=== PATIENT | female | born 1975 | race Caucasian/White ===

== ENCOUNTER 2018-08-05 11:45 | Emergency (ER) | payer OTHER, SELFPAY ==
[2018-08-05 11:52] VITALS: BP 133/82; PULSE 84; RESP 14; TEMP 36.6; O2SAT 97; BMI 36.2
--- NOTE | 2018-08-05 12:00 | DI.RAD.S_ITS ---
PROCEDURE: XR KNEE LT 3V INDICATIONS: Fall yesterday heard pop. TECHNIQUE: 3 views of the knee were acquired. COMPARISON: None. FINDINGS: Bones: No fractures or dislocations. No suspicious bony lesions. Soft tissues: No joint effusion. No suspicious soft tissue calcifications. IMPRESSION: No acute fracture or dislocation of the left knee. Consider followup radiographs in 7-10 days if there is continued clinical concern. Dictated by: Quinten Romeo M.D. on 08/05/2018 at 13:17 Approved by: Quinten Romeo M.D. on 08/05/2018 at 13:18
--- NOTE | 2018-08-05 12:14 | ED.LOWEXIN ---
HPI - Extremity Injury (Lower) <CATY Barbosa - Last Filed: 08/05/18 22:20> General Chief Complaint: Extremity Injury, Lower Stated Complaint: LT KNEE PAIN/ HEARD A POP IN MY KNEE Time Seen by Provider: 08/05/18 12:15 Source: patient Mode of arrival: wheelchair Limitations: no limitations History of Present Illness HPI Narrative: 43-year-old female with history of hypothyroidism and is a nonsmoker here for complaint of pain into her left knee. She states that yesterday she was walking on a rug that slipped on the floor underneath her causing her to twist her left knee. She reports pain and pop to the left knee when this happened. She denies any direct trauma to the knee. She reports increased pain with motion of the left knee. She also reports increased pain with weight-bearing. She is currently wearing a surgical boot to the left foot due to cuboid syndrome and is awaiting further care by Podiatry. She denies any other injuries or concerns at this timeframe. Related Data Home Medications Medication Instructions Recorded Confirmed hydrocodone-acetaminophen [[place]] 2 tab PO Q4-6H PRN 08/05/18 08/05/18 thyroid (pork) [[place] Thyroid] 15 mg PO DAILY 08/05/18 08/05/18 topiramate [Topamax] 100 mg PO DAILY 08/05/18 08/05/18 Previous Rx's Medication Instructions Recorded ondansetron [Zofran ODT] 4 mg PO Q8-12H PRN #10 tab 08/05/18 oxycodone-acetaminophen [Percocet] 1 tab PO Q4-6H PRN #10 tab 08/05/18 Allergies Allergy/AdvReac Type Severity Reaction Status Date / Time Sulfa (Sulfonamide Allergy Intermediate Vomiting Verified 08/05/18 11:56 Antibiotics) zolpidem [From Ambien] Allergy Intermediate Vomiting Verified 08/05/18 11:56 Penicillins Allergy Unknown Verified 08/05/18 11:56 acetaminophen [From Percocet] AdvReac Intermediate Nausea Verified 08/05/18 11:56 oxycodone [From Percocet] AdvReac Intermediate Nausea Verified 08/05/18 11:56 Review of Systems <CATY Barbosa - Last Filed: 08/05/18 22:20> Constitutional Denies chills, Denies fever(s), Denies lethargy and Denies weakness Eyes Denies change in vision, Denies eye discharge, Denies irritation and Denies loss of vision ENT Ears, Nose, Mouth, and Throat: Denies change in voice, Denies neck pain and Denies sore throat Cardiovascular Denies chest pain, Denies irregular heart rhythm, Denies lightheadedness, Denies palpitations, Denies dyspnea, Denies dyspnea on exertion and Denies orthopnea Respiratory Denies cough, Denies dyspnea, Denies dyspnea on exertion and Denies wheezing Gastrointestinal Gastrointestinal: Denies abdominal pain, Denies change in bowel habits, Denies diarrhea, Denies nausea and Denies vomiting Genitourinary Denies hematuria, Denies flank pain, Denies urinary incontinence and Denies urinary urgency Musculoskeletal Denies neck pain Comments: Left knee pain Integumentary/Breasts Denies pruritus, Denies erythema, Denies rash and Denies wounds Neurologic Denies confusion, Denies loss of vision and Denies weakness Psychiatric Denies anxiety, Denies confusion, Denies depression, Denies homicidal ideation and Denies suicidal ideation Endocrine Denies palpitations Hematologic/Lymphatic Denies easy bruising Allergic/Immunologic Denies wheezing Exam <Hernandez Islas GEOSCIENTIST - Last Filed: 08/05/18 22:20> Initial Vital Signs Initial Vital Signs: Vital Signs Temperature 97.8 F 08/05/18 11:52 Pulse Rate 84 08/05/18 11:52 Respiratory Rate 14 08/05/18 11:52 Blood Pressure 133/82 08/05/18 11:52 Pulse Oximetry 97 08/05/18 11:52 Const General: cooperative and well developed Nutritional Appearance: well nourished Orientation: alert, awake, oriented x3 and not confused [facility] Mouth: oral mucosae normal and moist mucous membranes Eyes Conjunctivae: conjunctivae normal Sclera: sclerae normal Pupils: PERRL EOM: EOM intact bilaterally Resp Effort & Inspection: normal respiratory effort, able to speak in complete sentences, no respiratory distress and no use of accessory muscles Auscultation: clear to auscultation bilaterally, no rales, no rhonchi and no wheezes Cardio Rate: regular rate Rhythm: regular rhythm Heart Sounds: no click, no gallops, no murmurs and no rubs Pulses: normal peripheral pulses Skin General: no rashes or lesions noted, No jaundice and No petechiae Neuro General: alert, oriented x3, gait normal and no focal motor deficits Speech: speech normal Extrem Other: Left knee with no swelling no ecchymosis no deformities. Negative anterior-posterior drawer sign. Negative varus and valgus stress test. Distal sensation is intact. Distal pulses are intact. Distal range of motion is intact. Decreased range of motion to the left knee due to pain. <Khadijah Griffin DO - Last Filed: 08/11/18 20:01> Initial Vital Signs Initial Vital Signs: Vital Signs Temperature 97.8 F 08/05/18 11:52 Pulse Rate 84 08/05/18 11:52 Respiratory Rate 14 08/05/18 11:52 Blood Pressure 133/82 08/05/18 11:52 Pulse Oximetry 97 08/05/18 11:52 Course <CATY Barbosa - Last Filed: 08/05/18 22:20> Orders Ordered: Discontinued Medications Ondansetron HCl (Zofran Odt) 4 mg PO NOW ONE Stop: 08/05/18 12:35 Last Admin: 08/05/18 12:44 Dose: 4 mg Oxycodone/Acetaminophen (Percocet 5/325) 2 tab PO NOW ONE Stop: 08/05/18 12:35 Last Admin: 08/05/18 12:44 Dose: 2 tab Vital Signs - 8 hr 08/05/18 11:52 Temperature 97.8 F Pulse Rate 84 Respiratory Rate 14 Blood Pressure 133/82 Pulse Oximetry 97 <Khadijah Griffin DO - Last Filed: 08/11/18 20:01> Orders Ordered: Discontinued Medications Ondansetron HCl (Zofran Odt) 4 mg PO NOW ONE Stop: 08/05/18 12:35 Last Admin: 08/05/18 12:44 Dose: 4 mg Oxycodone/Acetaminophen (Percocet 5/325) 2 tab PO NOW ONE Stop: 08/05/18 12:35 Last Admin: 08/05/18 12:44 Dose: 2 tab Vital Signs - 8 hr 08/05/18 11:52 Temperature 97.8 F Pulse Rate 84 Respiratory Rate 14 Blood Pressure 133/82 Pulse Oximetry 97 MDM - Extremity Injury (Lower) <CATY Barbosa - Last Filed: 08/05/18 22:20> Imaging Data left knee: Radiologist's impression: [address] [address] XRay Report Signed Patient: Kosta Gold MR#: [id number] : 1975 Acct:[id number] Age/Sex: 43 / F Date of Service: 08/05/18 Loc: ED Accession Number: [id number] Procedure: XR knee LT 3V Ordering Provider: Hernandez Islas PROCEDURE: XR KNEE LT 3V INDICATIONS: Fall yesterday heard pop. TECHNIQUE: 3 views of the knee were acquired. COMPARISON: None. FINDINGS: Bones: No fractures or dislocations. No suspicious bony lesions. Soft tissues: No joint effusion. No suspicious soft tissue calcifications. IMPRESSION: No acute fracture or dislocation of the left knee. Consider followup radiographs in 7-10 days if there is continued clinical concern. Dictated by: Quinten Romeo M.D. on 08/05/2018 at 13:17 Approved by: Quinten Romeo M.D. on 08/05/2018 at 13:18 [facility] Narrative Medical decision making narrative: X-ray the left knee was obtained was negative for any acute findings. Signs and symptoms presents as a sprain to the left knee. She is placed in a knee immobilizer. Postop boot was replaced for short postop boot to allow room for the knee immobilizer. She is also given crutches for nonweightbearing. She requested Percocet for pain as her prescribed [place] is not helping her pain at this timeframe. She is also prescribed Zofran to help with any nausea. [id number] ibuprofen to help with anti-inflammatory effects and discomfort. Follow up with primary care provider next week for re-evaluation. If symptoms do not resolve recommend MRI. Discharge Plan Departure Patient Disposition: Home Clinical Impression: Left knee sprain Discharge Date/Time: 08/05/18 13:59 Interventions: ED Discharge Assessment Last Done: 08/05/18 13:59 Instructions: DI for Knee Sprain Activity Restrictions/Additional Instructions: X-ray the left knee was negative for any acute findings. Signs and symptoms presents as knee sprain. You have been placed in knee immobilizer for comfort and support along with crutches for nonweightbearing use as directed. Use [id number] ibuprofen as needed for any discomfort. Ice and elevation help with any swelling. Small amount of Percocet as prescribed for breakthrough pain along with Zofran for nausea use as directed. No driving while on the Percocet. Follow up with her primary care provider next week for re-evaluation. If symptoms do not resolve recommend MRI. Prescriptions: New oxycodone-acetaminophen [Percocet] 5-325 mg tablet 1 tab PO Q4-6H PRN (Reason: pain) Qty: 10 RF: 0 ondansetron [Zofran ODT] 4 mg tablet,disintegrating 4 mg PO Q8-12H PRN (Reason: nausea and vomiting) Qty: 10 RF: 0 No Action hydrocodone-acetaminophen [[place]] 5-325 mg Tablet 2 tab PO Q4-6H PRN (Reason: Pain (Scale Score 7-10)) RF: 0 topiramate [Topamax] 100 mg Tablet 100 mg PO DAILY RF: 0 thyroid (pork) [[place] Thyroid] 15 mg Tablet 15 mg PO DAILY RF: 0 Referrals: Sulaiman Reina MD [Primary Care Provider] - <Khadijah Griffin DO - Last Filed: 08/11/18 20:01> Cosign ED Attending Ericature Attestation: I was immediately available in the department for consultation. Documentation has been reviewed. I agree with assessment and plan.
--- NOTE | 2018-08-05 12:38 | ED_ITS ---
HPI - Extremity Injury (Lower) <CATY Barbosa - Last Filed: 08/05/18 22:20> General Chief Complaint: Extremity Injury, Lower Stated Complaint: LT KNEE PAIN/ HEARD A POP IN MY KNEE Time Seen by Provider: 08/05/18 12:15 Source: patient Mode of arrival: wheelchair Limitations: no limitations History of Present Illness HPI Narrative: 43-year-old female with history of hypothyroidism and is a nonsmoker here for complaint of pain into her left knee. She states that yesterday she was walking on a rug that slipped on the floor underneath her causing her to twist her left knee. She reports pain and pop to the left knee when this happened. She denies any direct trauma to the knee. She reports increased pain with motion of the left knee. She also reports increased pain with weight-bearing. She is currently wearing a surgical boot to the left foot due to cuboid syndrome and is awaiting further care by Podiatry. She denies any other injuries or concerns at this timeframe. Related Data Home Medications Medication Instructions Recorded Confirmed hydrocodone-acetaminophen [[place]] 2 tab PO Q4-6H PRN 08/05/18 08/05/18 thyroid (pork) [[place] Thyroid] 15 mg PO DAILY 08/05/18 08/05/18 topiramate [Topamax] 100 mg PO DAILY 08/05/18 08/05/18 Previous Rx's Medication Instructions Recorded ondansetron [Zofran ODT] 4 mg PO Q8-12H PRN #10 tab 08/05/18 oxycodone-acetaminophen [Percocet] 1 tab PO Q4-6H PRN #10 tab 08/05/18 Allergies Allergy/AdvReac Type Severity Reaction Status Date / Time Sulfa (Sulfonamide Allergy Intermediate Vomiting Verified 08/05/18 11:56 Antibiotics) zolpidem [From Ambien] Allergy Intermediate Vomiting Verified 08/05/18 11:56 Penicillins Allergy Unknown Verified 08/05/18 11:56 acetaminophen [From Percocet] AdvReac Intermediate Nausea Verified 08/05/18 11: 56 oxycodone [From Percocet] AdvReac Intermediate Nausea Verified 08/05/18 11:56 Review of Systems <CATY Barbosa - Last Filed: 08/05/18 22:20> Constitutional Denies chills, Denies fever(s), Denies lethargy and Denies weakness Eyes Denies change in vision, Denies eye discharge, Denies irritation and Denies loss of vision ENT Ears, Nose, Mouth, and Throat: Denies change in voice, Denies neck pain and Denies sore throat Cardiovascular Denies chest pain, Denies irregular heart rhythm, Denies lightheadedness, Denies palpitations, Denies dyspnea, Denies dyspnea on exertion and Denies orthopnea Respiratory Denies cough, Denies dyspnea, Denies dyspnea on exertion and Denies wheezing Gastrointestinal Gastrointestinal: Denies abdominal pain, Denies change in bowel habits, Denies diarrhea, Denies nausea and Denies vomiting Genitourinary Denies hematuria, Denies flank pain, Denies urinary incontinence and Denies urinary urgency Musculoskeletal Denies neck pain Comments: Left knee pain Integumentary/Breasts Denies pruritus, Denies erythema, Denies rash and Denies wounds Neurologic Denies confusion, Denies loss of vision and Denies weakness Psychiatric Denies anxiety, Denies confusion, Denies depression, Denies homicidal ideation and Denies suicidal ideation Endocrine Denies palpitations Hematologic/Lymphatic Denies easy bruising Allergic/Immunologic Denies wheezing Exam <Hernandez Islas COIL CUTTER - Last Filed: 08/05/18 22:20> Initial Vital Signs Initial Vital Signs: Vital Signs Temperature 97.8 F 08/05/18 11:52 Pulse Rate 84 08/05/18 11:52 Respiratory Rate 14 08/05/18 11:52 Blood Pressure 133/82 08/05/18 11:52 Pulse Oximetry 97 08/05/18 11:52 Const General: cooperative and well developed Nutritional Appearance: well nourished Orientation: alert, awake, oriented x3 and not confused [facility] Mouth: oral mucosae normal and moist mucous membranes Eyes Conjunctivae: conjunctivae normal Sclera: sclerae normal Pupils: PERRL EOM: EOM intact bilaterally Resp Effort & Inspection: normal respiratory effort, able to speak in complete sentences, no respiratory distress and no use of accessory muscles Auscultation: clear to auscultation bilaterally, no rales, no rhonchi and no wheezes Cardio Rate: regular rate Rhythm: regular rhythm Heart Sounds: no click, no gallops, no murmurs and no rubs Pulses: normal peripheral pulses Skin General: no rashes or lesions noted, No jaundice and No petechiae Neuro General: alert, oriented x3, gait normal and no focal motor deficits Speech: speech normal Extrem Other: Left knee with no swelling no ecchymosis no deformities. Negative anterior-posterior drawer sign. Negative varus and valgus stress test. Distal sensation is intact. Distal pulses are intact. Distal range of motion is intact. Decreased range of motion to the left knee due to pain. <Khadijah Griffin DO - Last Filed: 08/11/18 20:01> Initial Vital Signs Initial Vital Signs: Vital Signs Temperature 97.8 F 08/05/18 11:52 Pulse Rate 84 08/05/18 11:52 Respiratory Rate 14 08/05/18 11:52 Blood Pressure 133/82 08/05/18 11:52 Pulse Oximetry 97 08/05/18 11:52 Course <CATY Barbosa - Last Filed: 08/05/18 22:20> Orders Ordered: Discontinued Medications Ondansetron HCl (Zofran Odt) 4 mg PO NOW ONE Stop: 08/05/18 12:35 Last Admin: 08/05/18 12:44 Dose: 4 mg Oxycodone/Acetaminophen (Percocet 5/325) 2 tab PO NOW ONE Stop: 08/05/18 12:35 Last Admin: 08/05/18 12:44 Dose: 2 tab Vital Signs - 8 hr 08/05/18 11:52 Temperature 97.8 F Pulse Rate 84 Respiratory Rate 14 Blood Pressure 133/82 Pulse Oximetry 97 <Khadijah Griffin DO - Last Filed: 08/11/18 20:01> Orders Ordered: Discontinued Medications Ondansetron HCl (Zofran Odt) 4 mg PO NOW ONE Stop: 08/05/18 12:35 Last Admin: 08/05/18 12:44 Dose: 4 mg Oxycodone/Acetaminophen (Percocet 5/325) 2 tab PO NOW ONE Stop: 08/05/18 12:35 Last Admin: 08/05/18 12:44 Dose: 2 tab Vital Signs - 8 hr 08/05/18 11:52 Temperature 97.8 F Pulse Rate 84 Respiratory Rate 14 Blood Pressure 133/82 Pulse Oximetry 97 MDM - Extremity Injury (Lower) <CATY Barbosa - Last Filed: 08/05/18 22:20> Imaging Data left knee: Radiologist's impression: [address] [address] XRay Report Signed Patient: Kosta Gold MR#: [id number] : 1975 Acct:[id number] Age/Sex: 43 / F Date of Service: 08/05/18 Loc: ED Accession Number: [id number] Procedure: XR knee LT 3V Ordering Provider: Hernandez Islas PROCEDURE: XR KNEE LT 3V INDICATIONS: Fall yesterday heard pop. TECHNIQUE: 3 views of the knee were acquired. COMPARISON: None. FINDINGS: Bones: No fractures or dislocations. No suspicious bony lesions. Soft tissues: No joint effusion. No suspicious soft tissue calcifications. IMPRESSION: No acute fracture or dislocation of the left knee. Consider followup radiographs in 7-10 days if there is continued clinical concern. Dictated by: Quinten Romeo M.D. on 08/05/2018 at 13:17 Approved by: Quinten Romeo M.D. on 08/05/2018 at 13:18 [facility] Narrative Medical decision making narrative: X-ray the left knee was obtained was negative for any acute findings. Signs and symptoms presents as a sprain to the left knee. She is placed in a knee immobilizer. Postop boot was replaced for short postop boot to allow room for the knee immobilizer. She is also given crutches for nonweightbearing. She requested Percocet for pain as her prescribed [place] is not helping her pain at this timeframe. She is also prescribed Zofran to help with any nausea. [id number]-[id number]-[id number] ibuprofen to help with anti-inflammatory effects and discomfort. Follow up with primary care provider next week for re-evaluation. If symptoms do not resolve recommend MRI. Discharge Plan Departure Patient Disposition: Home Clinical Impression: Left knee sprain Discharge Date/Time: 08/05/18 13:59 Interventions: ED Discharge Assessment Last Done: 08/05/18 13:59 Instructions: DI for Knee Sprain Activity Restrictions/Additional Instructions: X-ray the left knee was negative for any acute findings. Signs and symptoms presents as knee sprain. You have been placed in knee immobilizer for comfort and support along with crutches for nonweightbearing use as directed. Use over- the-counter ibuprofen as needed for any discomfort. Ice and elevation help with any swelling. Small amount of Percocet as prescribed for breakthrough pain along with Zofran for nausea use as directed. No driving while on the Percocet. Follow up with her primary care provider next week for re- evaluation. If symptoms do not resolve recommend MRI. Prescriptions: New oxycodone-acetaminophen [Percocet] 5-325 mg tablet 1 tab PO Q4-6H PRN (Reason: pain) Qty: 10 RF: 0 ondansetron [Zofran ODT] 4 mg tablet,disintegrating 4 mg PO Q8-12H PRN (Reason: nausea and vomiting) Qty: 10 RF: 0 No Action hydrocodone-acetaminophen [[place]] 5-325 mg Tablet 2 tab PO Q4-6H PRN (Reason: Pain (Scale Score 7-10)) RF: 0 topiramate [Topamax] 100 mg Tablet 100 mg PO DAILY RF: 0 thyroid (pork) [[place] Thyroid] 15 mg Tablet 15 mg PO DAILY RF: 0 Referrals: Sulaiman Reina MD [Primary Care Provider] - <Khadijah Griffin DO - Last Filed: 08/11/18 20:01> Cosign ED Attending Ericature Attestation: I was immediately available in the department for consultation. Documentation has been reviewed. I agree with assessment and plan.
[2018-08-05] MEDS: OXYCODONE/ACETAMINOPHEN 5/325 TABLET 2 TAB PO (12:44)
[2018-08-05] MEDS: ONDANSETRON 4 MG ODT PO (12:44)
[2018-08-05 13:49] VITALS: BP 128/70; PULSE 77; RESP 18; O2SAT 100
== END 2018-08-05 13:59 | disposition home or self-care (01) ==
PROVIDERS: Emergency Provider Nurse Practitioner Family; PCP Family Medicine
DX: S83.92XA Sprain of unspecified site of left knee, initial encounter (principal); W18.41XA Slipping, tripping and stumbling without falling due to stepping on object, initial encounter
CPT/HCPCS: 73562; 99283

== ENCOUNTER 2019-10-31 11:48 | Emergency (ER) | payer OTHER, SELFPAY ==
[2019-10-31 11:48] VITALS: BP 131/87; PULSE 84; RESP 14; TEMP 36.7; O2SAT 100
[2019-10-31 12:00] VITALS: PULSE 88
--- NOTE | 2019-10-31 12:16 | DI.RAD.S_ITS ---
PROCEDURE: XR THORACIC SPINE 3V INDICATIONS: back pain sp chiro TECHNIQUE: 3 views of the thoracic spine were acquired. COMPARISON: None. FINDINGS: Bones: No fractures or dislocations. No suspicious bony lesions. 12 pairs of ribs are noted, and appear intact where visualized. Soft tissues: No paravertebral stripe thickening. IMPRESSION: No fracture or dislocation is seen in thoracic spine. Dictated by: Delonte King M.D. on 10/31/2019 at 13:37 Approved by: Delonte King M.D. on 10/31/2019 at 13:40
--- NOTE | 2019-10-31 12:16 | DI.RAD.S_ITS ---
PROCEDURE: XR LUMBAR SPINE 2-3V INDICATIONS: pain sp chiro TECHNIQUE: 3 views of the lumbar spine were acquired. COMPARISON: None. FINDINGS: Bones: 5 [id number] vertebrae are present. There is normal bony alignment. No vertebral body compression fractures. Mild degenerative endplate changes at L3-4 through L5-S1 levels are seen. No suspicious bony lesions. Soft tissues: Overlying bowel gas pattern is normal. No suspicious soft tissue calcifications. IMPRESSION: Mild degenerative disc disease in lower lumbar spine. No acute compression fracture or spondylolisthesis. Dictated by: Delonte King M.D. on 10/31/2019 at 13:40 Approved by: Delonte King M.D. on 10/31/2019 at 13:42
--- NOTE | 2019-10-31 12:25 | ED_ITS ---
HPI - Extremity Problem <RAHEEM Jackson - Last Filed: 10/31/19 21:06> General Chief complaint: Extremity Problem,Nontraumatic Stated complaint: shoulders,hips,lower back pain Time Seen by Provider: 10/31/19 12:03 Source: patient Mode of arrival: Wheelchair Limitations: no limitations History of Present Illness HPI Narrative: The patient is a 44-year-old female nonsmoker with history of chronic back pain who presents with a chief complaint of worsening back pain. She states that her chronic back pain is much worse after a chiropractor visit on Wednesday. She denies any incontinence of bowel, incontinence of bladder saddle anesthesia. She states that she severe low back pain radiating to her right thigh, but not last all she states that she has pain around her left shoulder. She denies any numbness or tingling. She took [place] at home for chronic pain, but states that it makes her nauseous. She has not taken any Tylenol or Motrin. She has not taken anything today for pain. She is able to ambulate around the emergency department during her stay with no difficulty. Related Data Home Medications Medication Instructions Recorded Confirmed desvenlafaxine succinate 50 mg PO QPM 10/31/19 10/31/19 topiramate [Topamax] 50 mg PO BID 10/31/19 10/31/19 Previous Rx's Medication Instructions Recorded cyclobenzaprine 10 mg PO TID PRN #14 tab 10/31/19 ketorolac 10 mg PO TID PRN #14 tab 10/31/19 ondansetron 4 mg PO Q6H PRN #20 tab 10/31/19 Allergies Allergy/AdvReac Type Severity Reaction Status Date / Time Sulfa (Sulfonamide Allergy Intermediate Vomiting Verified 10/31/19 12:09 Antibiotics) zolpidem [From Ambien] Allergy Intermediate Vomiting Verified 10/31/19 12:09 Penicillins Allergy Unknown Verified 10/31/19 12:09 oxycodone [From Percocet] AdvReac Intermediate Nausea Verified 10/31/19 12:09 Review of Systems <RAHEEM Jackson - Last Filed: 10/31/19 21:06> Review of Systems Narrative: GENERAL: Denies chills, fatigue, malaise, fever, sweats. HEENT: Denies sinus pain, ear pain, sore throat, difficulty swallowing, dizziness. RESPIRATORY: Denies dyspnea, cough, wheezing, hemoptysis, sputum. CARDIOVASCULAR: Denies chest pain, palpitations, orthopnea, edema, GASTROINTESTINAL: Denies nausea, vomiting, abdominal pain, diarrhea, constipation, melena. : Denies dysuria, frequency, incontinence, hematuria, urinary retention. MUSCULOSKELETAL: See HPI SKIN: Denies rash, skin lesions, or other NEUROLOGIC: Denies weakness, headache, numbness, change in speech, confusion, seizures, incoordination. PSYCHIATRIC: No concerning psychosocial issues. 12 point review of systems is negative except for those stated above Patient History <RAHEEM Jackson - Last Filed: 10/31/19 21:06> Social History Smoking Status: Never smoker Smoking Status: Never smoker alcohol intake frequency: 0-2 drinks per day Substance Use Type: does not use Exam <RAHEEM Jackson - Last Filed: 10/31/19 21:06> Narrative Exam Narrative: GENERAL: This is a well-nourished, well-developed patient, in no acute distress HEAD: Atraumatic. Normocephalic. No temporal or scalp tenderness. EYES: Pupils equal round and reactive. Extraocular motions intact. No scleral icterus. No injection or drainage. ENT: Nose without bleeding, purulent drainage or septal hematoma. Throat without erythema, tonsillar hypertrophy or exudate. Uvula midline. Airway patent. NECK: Trachea midline. No JVD or lymphadenopathy. Supple, nontender, no meningeal signs. CARDIOVASCULAR: Regular rate and rhythm without murmurs, gallops, or rubs. RESPIRATORY: Clear to auscultation. Breath sounds equal bilaterally. No wheezes, rales, or rhonchi. GASTROINTESTINAL: Abdomen soft, non-tender, nondistended. No hepato- splenomegaly, or palpable masses. No guarding. EXTREMITIES: No clubbing, cyanosis, or edema. No joint tenderness, effusion, or edema noted. BACK: No pain to C-spine palpation. Pain to palpation of T and L-spine as well as paraspinal muscles bilaterally. Stable gait. Strength is equal upper and lower extremities bilaterally. NEURO: AOx3. SKIN: No rash or erythema. Initial Vital Signs Initial Vital Signs: Vital Signs Temperature 98.1 F 10/31/19 11:48 Pulse Rate 84 10/31/19 11:48 Respiratory Rate 14 10/31/19 11:48 Blood Pressure 131/87 10/31/19 11:48 Pulse Oximetry 100 10/31/19 11:48 <Segun Mancilla DO - Last Filed: 10/31/19 21:14> Initial Vital Signs Initial Vital Signs: Vital Signs Temperature 98.1 F 10/31/19 11:48 Pulse Rate 84 10/31/19 11:48 Respiratory Rate 14 10/31/19 11:48 Blood Pressure 131/87 10/31/19 11:48 Pulse Oximetry 100 10/31/19 11:48 Course <RAHEEM Jackson - Last Filed: 10/31/19 21:06> Orders Ordered: ED Orders 10/31/19 12:16 XR lumbar spine 2-3V Stat XR thoracic spine 3V Stat Discontinued Medications Cyclobenzaprine HCl (Flexeril) 10 mg PO NOW ONE Stop: 10/31/19 12:17 Last Admin: 10/31/19 13:07 Dose: 10 mg Documented by: RADHA Ketorolac Tromethamine (Toradol) 60 mg IM NOW ONE Stop: 10/31/19 12:17 Last Admin: 10/31/19 13:06 Dose: 60 mg Documented by: RADHA Lidocaine (Lidoderm) 1 each TOP NOW ONE Stop: 10/31/19 13:52 Last Admin: 10/31/19 14:19 Dose: 1 each Documented by: MATTHEW Ondansetron HCl (Zofran Odt) 4 mg SL NOW ONE Stop: 10/31/19 12:17 Last Admin: 10/31/19 13:07 Dose: 4 mg Documented by: RADHA Tramadol HCl (Ultram) 50 mg PO NOW ONE Stop: 10/31/19 13:52 Last Admin: 10/31/19 14:18 Dose: 50 mg Documented by: MATTHEW Vital Signs Vital signs: Vital Signs - 8 hr 10/31/19 11:48 Temperature 98.1 F Pulse Rate 84 Respiratory Rate 14 Blood Pressure 131/87 Pulse Oximetry 100 <DO Delicia Bonilla Last Filed: 10/31/19 21:14> Orders Ordered: ED Orders 10/31/19 12:16 XR lumbar spine 2-3V Stat XR thoracic spine 3V Stat Discontinued Medications Cyclobenzaprine HCl (Flexeril) 10 mg PO NOW ONE Stop: 10/31/19 12:17 Last Admin: 10/31/19 13:07 Dose: 10 mg Documented by: RADHA Ketorolac Tromethamine (Toradol) 60 mg IM NOW ONE Stop: 10/31/19 12:17 Last Admin: 10/31/19 13:06 Dose: 60 mg Documented by: RADHA Lidocaine (Lidoderm) 1 each TOP NOW ONE Stop: 10/31/19 13:52 Last Admin: 10/31/19 14:19 Dose: 1 each Documented by: MATTHEW Ondansetron HCl (Zofran Odt) 4 mg SL NOW ONE Stop: 10/31/19 12:17 Last Admin: 10/31/19 13:07 Dose: 4 mg Documented by: RADHA Tramadol HCl (Ultram) 50 mg PO NOW ONE Stop: 10/31/19 13:52 Last Admin: 10/31/19 14:18 Dose: 50 mg Documented by: MATTHEW Vital Signs Vital signs: Vital Signs - 8 hr 10/31/19 11:48 Temperature 98.1 F Pulse Rate 84 Respiratory Rate 14 Blood Pressure 131/87 Pulse Oximetry 100 MDM - Extremity (Nontraumatic) <RAHEEM Jackson - Last Filed: 10/31/19 21:06> Imaging Data T-spine x-ray: Radiologist's impression: Kosta Gold 44 F 1975 [place] [address] XRay Report Signed Patient: AsifMeganami Quintana KMR#: [id number] : 1975Acct:[id number] Age/Sex: 44 / FDate of Service: 10/31/19 Loc: ED Accession Number: [id number] Procedure: XR thoracic spine 3V Ordering Provider: Conchis Lamar PROCEDURE: XR THORACIC SPINE 3V INDICATIONS: back pain sp chiro TECHNIQUE: 3 views of the thoracic spine were acquired. COMPARISON: None. FINDINGS: Bones: No fractures or dislocations. No suspicious bony lesions. 12 pairs of ribs are noted, and appear intact where visualized. Soft tissues: No paravertebral stripe thickening. IMPRESSION: No fracture or dislocation is seen in thoracic spine. Dictated by: Delonte King M.D. on 10/31/2019 at 13:37 Approved by: Delonte King M.D. on 10/31/2019 at 13:40 Lumbar spine x-ray: Radiologist's impression: [address] [address] XRay Report Signed Patient: Kosta Gold KMR#: [id number] : 1975Acct:[id number] Age/Sex: 44 / FDate of Service: 10/31/19 Loc: ED Accession Number: [id number] Procedure: XR lumbar spine 2-3V Ordering Provider: Conchis Lamar ALCOHOL AND DRUG COUNSELOR- PROCEDURE: XR LUMBAR SPINE 2-3V INDICATIONS: pain sp chiro TECHNIQUE: 3 views of the lumbar spine were acquired. COMPARISON: None. FINDINGS: Bones: 5 [id number] vertebrae are present. There is normal bony alignment. No vertebral body compression fractures. Mild degenerative endplate changes at L3- 4 through L5-S1 levels are seen. No suspicious bony lesions. Soft tissues: Overlying bowel gas pattern is normal. No suspicious soft tissue calcifications. IMPRESSION: Mild degenerative disc disease in lower lumbar spine. No acute compression fracture or spondylolisthesis. Dictated by: Delonte King M.D. on 10/31/2019 at 13:40 Approved by: Delonte King M.D. on 10/31/2019 at 13:42 [facility] Narrative Medical decision making narrative: The patient is a 44-year-old female who presents with a chief complaint of chronic pain exacerbation after seeing a chiropractor last week. She feels improved, looser after the above-stated therapies but states that her pain is not much improved. However she states that she feels looser and can move better. She ambulates throughout her stay without difficulties. She has no red flag symptoms of incontinence of bowel, incontinence bladder or saddle anesthesia helping rule out cauda, but she states understanding of these return precautions. I did give her prescriptions of Toradol with strict instructions to not combine it with any other NSAIDs. I did give her prescription of Flexeril with instructions that I can be sedating. Encourage PCP follow-up in the next few days. Patient has no questions or concerns upon discharge and states understanding of return precautions as well as follow-up care. Discharge Plan Departure Patient Disposition: Home Clinical Impression: Back muscle spasm Back pain Qualifiers: Back pain location: back pain in unspecified location Chronicity: chronic Back pain laterality: unspecified Qualified Code(s): M54.9 - Dorsalgia, unspecified Discharge Date/Time: 10/31/19 15:23 Instructions: DI for Low Back Pain, DI for Back Spasm, DI for Thoracic Back Pain, DI for Muscle Spasm Activity Restrictions/Additional Instructions: I sent prescriptions of Flexeril and Toradol to [facility] in [place] Your x-ray show no acute fractures or findings today. As I discussed, your x-ray shows no acute fracture. This does not rule out a soft tissue injury. It is important that you follow up with primary care provider, especially if worsening or no improvement. I have given you a prescription of Toradol. This is an NSAID. Do not combine it with other NSAIDs such as Aleve or ibuprofen. I suggest taking it with some food, as it can irritate your stomach. Please follow-up with primary care provider in the next few days Please come back to the emergency department for any acute concerns such as incontinence of bowel, incontinence of bladder or numbness in her groin Prescriptions: New ketorolac 10 mg tablet 10 mg PO TID PRN (Reason: pain) Qty: 14 RF: 0 cyclobenzaprine 10 mg tablet 10 mg PO TID PRN (Reason: muscle spasm) Qty: 14 RF: 0 ondansetron 4 mg tablet,disintegrating 4 mg PO Q6H PRN (Reason: nausea and vomiting) Qty: 20 RF: 0 No Action desvenlafaxine succinate 25 mg tablet extended release 24 hr 50 mg PO QPM RF: 0 topiramate [Topamax] 50 mg Tablet 50 mg PO BID RF: 0 Referrals: Melanie Snider MD [Primary Care Provider] - <Segun Mancilla, DO - Last Filed: 10/31/19 21:14> Sign Out Provider Sign Out Attestation: Dr Mancilla Co-Sign Statement: I was available for consultation during this patient's emergency department visit. This chart is signed by myself for administrative purposes only. I did not have direct contact with this patient during this visit. They were seen independently by the APC.
[2019-10-31] MEDS: KETOROLAC 60 MG/2 ML VIAL IM (13:06)
[2019-10-31] MEDS: ONDANSETRON 4 MG ODT SL (13:07)
[2019-10-31] MEDS: CYCLOBENZAPRINE 10 MG TABLET PO (13:07)
--- NOTE | 2019-10-31 13:25 | PC.NURSE ---
Late entry: initial assessment: Pt w/ chronic low back pain w/ radiation to anterior thigh. Left shoulder pain from known cervical injury. Both are worse. No new injury. Denies bowel and bladder concerns except it hurts to sit and void. Moving all extremities equally well. CSM fully intact. Pt states she normally takes norco and ibuprofen but is having difficulty taking r/t nausea.
[2019-10-31] MEDS: TRAMADOL 50 MG TABLET PO (14:18)
[2019-10-31] MEDS: LIDOCAINE PATCH 1 EACH ADH..PATCH TOP (14:19)
--- NOTE | 2019-10-31 14:22 | PC.NURSE ---
patient able to sit upright without assistance and take po medication. She maintained her upright sitting position for minutes while taking medication and having lidocane patch placed. Denies further needs at this time. Sig other at bedside.
--- NOTE | 2019-10-31 15:08 | PC.NURSE ---
patient asked to provide a urine sample. Patient refused. provider notified, no orders received.
== END 2019-10-31 15:23 | disposition home or self-care (01) ==
PROVIDERS: Emergency Provider Nurse Practitioner Family; PCP Family Medicine
DX: M62.830 Muscle spasm of back (principal); M54.9 Dorsalgia, unspecified
CPT/HCPCS: 72072; 72100; 96372; 99283; J1885

== ENCOUNTER 2020-09-03 08:48 | Emergency (ER) | payer OTHER, SELFPAY ==
[2020-09-03] VITALS (10 sets, daily range): BP systolic 123–160; BP diastolic 64–80; PULSE 69–96; RESP 16; TEMP 36.8; O2SAT 94–99
--- NOTE | 2020-09-03 10:03 | ED.GENADULT ---
HPI - General Adult General Chief complaint: Weakness Stated complaint: lupus flare up Time Seen by Provider: 09/03/20 09:39 Source: patient Mode of arrival: Ambulatory History of Present Illness HPI narrative: drove patient here. Patient complains of lupus joint pain flare-up. Ongoing the past few days worsened yesterday. Patient diagnosed with lupus in 2014. She recently moved back from [place]. She was seeing a thrill performer and atmara Castro. Currently is not on any maintenance medication. Patient states pain feels exactly same as past flare-ups. Has had Toradol in the past. Has had steroids in the past as well. LMP now. No known triggers. She states hot heat would usually trigger it. No recent illness cough cold congestion fever chills. Related Data Home Medications Medication Instructions Recorded Confirmed desvenlafaxine succinate 50 mg PO QPM 10/31/19 10/31/19 topiramate [Topamax] 50 mg PO BID 10/31/19 10/31/19 Previous Rx's Medication Instructions Recorded cyclobenzaprine 10 mg PO TID PRN #14 tab 10/31/19 ketorolac 10 mg PO TID PRN #14 tab 10/31/19 ondansetron 4 mg PO Q6H PRN #20 tab 10/31/19 hydrocodone-acetaminophen 1 tab PO Q6H PRN #7 tab 09/03/20 methylprednisolone [Medrol ([place]arter)] See Rx Instructions .ROUTE 09/03/20 .COMPLEX #21 each ondansetron 4 mg PO Q8H PRN #10 tab 09/03/20 Allergies Allergy/AdvReac Type Severity Reaction Status Date / Time Sulfa (Sulfonamide Allergy Intermediate Vomiting Verified 10/31/19 12:09 Antibiotics) zolpidem [From Ambien] Allergy Intermediate Vomiting Verified 10/31/19 12:09 Penicillins Allergy Unknown Verified 10/31/19 12:09 oxycodone [From Percocet] AdvReac Intermediate Nausea Verified 10/31/19 12:09 Review of Systems Review of Systems Narrative: GENERAL: Denies chills, fatigue, malaise, fever, sweats. HEENT: Denies sinus pain, ear pain, sore throat, difficulty swallowing RESPIRATORY: Denies dyspnea, cough CARDIOVASCULAR: Denies chest pain, palpitations, edema, GASTROINTESTINAL: Denies nausea, vomiting, abdominal pain, diarrhea, constipation, melena. : Denies dysuria, frequency, hematuria MUSCULOSKELETAL: Complains bony pain SKIN: Denies rash, skin lesions NEUROLOGIC: Denies weakness, headache, numbness, change in speech, confusion PSYCHIATRIC: No SI or HI or hallucinations ROS Unobtainable: All systems reviewed & are unremarkable except as noted in HPI and below Patient History Social History Smoking Status: Never smoker Smoking Status: Never smoker alcohol intake frequency: 0-2 drinks per day Substance Use Type: does not use Exam Narrative Exam Narrative: GENERAL: patient appears stated age. Well-nourished, well-developed patient, in no distress, not toxic not dyspneic HEAD: Normocephalic. EYES: Pupils equal round and reactive. No scleral icterus. No injection no discharge ENT: Mucous membranes moist. No drooling no tongue elevation no trismus no malocclusion NECK: Trachea midline. Non tender CARDIOVASCULAR: Regular rate and rhythm without murmurs, gallops, or rubs. RESPIRATORY: Clear to auscultation. Breath sounds equal bilaterally. No wheezes, rales, or rhonchi. GASTROINTESTINAL: Abdomen soft, non-tender, nondistended. EXTREMITIES: No gross deformities. No erythema or swelling of the wrist hands fingers ankles. No rash. Non tender bilateral shoulders elbows wrists knees ankles. Nontender hips. BACK: Nontender without deformity or crepitance. No flank tenderness. NEURO: AOx4. SKIN: Warm and dry PSYCH: Not anxious, is cooperative Initial Vital Signs Initial Vital Signs: Vital Signs Temperature 98.3 F 09/03/20 09:05 Pulse Rate 96 H 09/03/20 09:05 Respiratory Rate 16 09/03/20 09:05 Blood Pressure 157/69 H 09/03/20 09:05 Pulse Oximetry 99 09/03/20 09:05 Course Course Course Narrative: Pain control achieved while here. Patient not toxic. She desires discharge home. Orders Ordered: Discontinued Medications Hydrocodone Bitart/Acetaminophen ([place] 5/325) 2 tab PO NOW ONE Stop: 09/03/20 10:03 Last Admin: 09/03/20 10:49 Dose: 2 tab Documented by: MMINOR Sodium Chloride (Normal Saline 0.9%) 1,000 mls @ 1,000 mls/hr IV BOLUS ONE Stop: 09/03/20 11:55 Last Admin: 09/03/20 11:07 Dose: 1,000 mls/hr Documented by: MAC Ketorolac Tromethamine (Toradol) 15 mg IV NOW ONE Stop: 09/03/20 10:02 Last Admin: 09/03/20 10:16 Dose: 15 mg Documented by: MAC Methylprednisolone (Solu-Medrol 125 Mg Vial) 125 mg IV NOW ONE Stop: 09/03/20 10:55 Last Admin: 09/03/20 11:07 Dose: 125 mg Documented by: MAC Morphine Sulfate (Morphine) 4 mg IV NOW ONE Stop: 09/03/20 12:01 Last Admin: 09/03/20 12:13 Dose: 4 mg Documented by: MAC Ondansetron HCl (Zofran) 4 mg IV NOW ONE Stop: 09/03/20 10:02 Last Admin: 09/03/20 10:16 Dose: 4 mg Documented by: MAC Reevaluation(s) Reevaluation #1: Feels much better. Pain free. She desires discharge home. Has a residential recycle driver. Time: 13:14 Vital Signs Vital signs: Vital Signs - 8 hr 09/03/20 10:30 09/03/20 11:00 09/03/20 11:30 Pulse Rate 75 71 69 Blood Pressure 123/64 138/70 140/72 Pulse Oximetry 96 96 96 09/03/20 12:00 09/03/20 12:30 09/03/20 13:00 Pulse Rate 82 69 72 Blood Pressure 157/80 H 149/77 H Pulse Oximetry 97 94 94 09/03/20 13:01 Pulse Rate 73 Blood Pressure 160/70 H Pulse Oximetry 96 Medical Decision Making Differential Diagnosis Differential Diagnosis: Lupus flare Lab Data Lab results reviewed: Yes I reviewed the patient's lab results. Result diagrams: 09/03/20 09:07 09/03/20 09:07 Labs: Lab Results 09/03/20 09/03/20 09/03/20 Range/Units 09:07 09:07 09:07 WBC 9.9 (4.5-11.0) X10^3/uL RBC 4.77 (4.0-5.2) X10^6/uL Hgb 12.6 (12.0-16.0) g/dL Hct 38.2 (36-46) % MCV 80.2 (80-100) fL MCH 26.3 (26-34) PG MCHC 32.8 (30-36) % RDW 16.8 H (11.6-14.8) % Plt Count 357 (150-400) X10^3/uL Neut % (Auto) 64.9 (50-75) % Lymph % (Auto) 24.5 L (25-40) % [place] % (Auto) 6.9 (3-14) % Eos % (Auto) 2.8 (2-4) % Baso % (Auto) 0.9 (0-2) % Neut # (Auto) 6400 (9042-6503) /uL Lymph # (Auto) 2400 (5850-2734) /uL [place] # (Auto) 700 (0-900) /uL Eos # (Auto) 300 (0-450) /uL Baso # (Auto) 100 (0-100) /uL ESR 48 H (0-20) MM/HR Sodium 138 (137-145) mmol/L Potassium 3.8 (3.4-5.1) mmol/L Chloride 104 (98-107) mmol/L Carbon Dioxide 25 (22-32) mmol/L BUN 18 H (7-17) mg/dL Creatinine 0.75 (0.52-1.04) mg/dL Estimated GFR > 60.0 (>60) mL/min BUN/Creatinine Ratio 24.0 H (6-22) Glucose 118 H (70-100) mg/dL Calcium 9.4 (8.4-10.2) mg/dL Total Bilirubin 0.4 (0.2-1.3) mg/dL AST 27 (14-36) IU/L ALT 18 (<35) IU/L Alkaline Phosphatase 98 (38-126) U/L C-Reactive Protein 1.4 H (<1.0) mg/dL Total Protein 8.4 H (6.3-8.2) g/dL Albumin 4.5 (3.5-5.0) g/dL Globulin 3.9 (1.7-4.1) g/dL Albumin/Globulin Ratio 1.2 (1.0-2.8) Serum , Qual Negative (Negative) MDM Narrative Medical decision making narrative: No imaging indicated. Patient states feels exactly like past flare-ups. Not toxic at discharge. Appropriate for discharge home Discharge Plan Departure Patient Disposition: Home Clinical Impression: Lupus arthritis Discharge Date/Time: 09/03/20 13:30 Instructions: DI for Systemic Lupus Erythematosus Activity Restrictions/Additional Instructions: No driving today. Call your your rheumatology services office today for appointment. Return if worse or if any questions concerns. Continue started pack tomorrow. Prescriptions: New hydrocodone-acetaminophen 5-325 mg tablet 1 tab PO Q6H PRN (Reason: pain) Qty: 7 RF: 0 methylprednisolone [Medrol ([place])] 4 mg tablets,dose pack See Rx Instructions .ROUTE .COMPLEX Qty: 21 RF: 0 ondansetron 4 mg tablet,disintegrating 4 mg PO Q8H PRN (Reason: nausea and vomiting) Qty: 10 RF: 0 No Action desvenlafaxine succinate 25 mg tablet extended release 24 hr 50 mg PO QPM RF: 0 topiramate [Topamax] 50 mg Tablet 50 mg PO BID RF: 0 ketorolac 10 mg tablet 10 mg PO TID PRN (Reason: pain) Qty: 14 RF: 0 cyclobenzaprine 10 mg tablet 10 mg PO TID PRN (Reason: muscle spasm) Qty: 14 RF: 0 ondansetron 4 mg tablet,disintegrating 4 mg PO Q6H PRN (Reason: nausea and vomiting) Qty: 20 RF: 0 Referrals: Melanie Snider MD [Primary Care Provider] -
[2020-09-03 10:09] LABS: Add Manual Diff / Slide Review NO; Basophils Absolute Auto 100 /uL (0-100); Basophils Percent Auto 0.9 % (0-2); Eosinophils Absolute Auto 300 /uL (0-450); Eosinophils Percent Auto 2.8 % (2-4); Hematocrit 38.2 % (36-46); Hemoglobin 12.6 g/dL (12.0-16.0); Lymphocytes Absolute Auto 2400 /uL (1100-4500); Lymphocytes Percent Auto 24.5 % (25-40); Mean Corpuscular HGB Conc 32.8 % (30-36); Mean Corpuscular Hemoglobin 26.3 PG (26-34); Mean Corpuscular Volume 80.2 fL (80-100); Monocytes Absolute Auto 700 /uL (0-900); Monocytes Percent Auto 6.9 % (3-14); Neutrophils Absolute Auto 6400 /uL (1500-7000); Neutrophils Percent Auto 64.9 % (50-75); Platelet Count 357 X10^3/uL (150-400); Red Blood Cell Count 4.77 X10^6/uL (4.0-5.2); Red Cell Distribution Width 16.8 % (11.6-14.8); White Blood Cell Count 9.9 X10^3/uL (4.5-11.0)
[2020-09-03 10:12] LABS: Pregnancy Test Serum,Qual Negative (Negative)
[2020-09-03 10:16] LABS: Alanine Aminotransferase 18 IU/L (<35); Albumin 4.5 g/dL (3.5-5.0); Albumin Globulin Ratio 1.2 (1.0-2.8); Alkaline Phosphatase 98 U/L (38-126); Aspartate Aminotransferase 27 IU/L (14-36); Bilirubin Total 0.4 mg/dL (0.2-1.3); Blood Urea Nitrogen 18 mg/dL (7-17); C-Reactive Protein Quant 1.4 mg/dL (<1.0); Calcium 9.4 mg/dL (8.4-10.2); Carbon Dioxide 25 mmol/L (22-32); Chloride 104 mmol/L (98-107); Estimated Glomerular Filt Rate > 60.0 mL/min (>60); Globulin 3.9 g/dL (1.7-4.1); Glucose 118 mg/dL (70-100); HEMOLYSIS < 15 (0-50); Potassium 3.8 mmol/L (3.4-5.1); Sodium 138 mmol/L (137-145); Total Protein 8.4 g/dL (6.3-8.2)
[2020-09-03] MEDS: KETOROLAC 60 MG/2 ML VIAL 15 MG IV (10:16)
[2020-09-03] MEDS: ONDANSETRON 4 MG/2 ML INJ IV (10:16)
[2020-09-03 10:43] LABS: Erythrocyte Sedimentation Rate 48 MM/HR (0-20)
[2020-09-03] MEDS: HYDROCODONE/ACET 5/325 TABLET 2 TAB PO (10:49)
--- NOTE | 2020-09-03 10:57 | PC.NURSE ---
pt has hx of lupus with chronic joint pain of 6/10, here today with pain 9/10 which is not normal for her
[2020-09-03] MEDS: methylPREDNISolone 125 MG/2 ML VIAL IV (11:07)
[2020-09-03] MEDS: SODIUM CHLORIDE 0.9% 1,000 ML 1000 ML IV (11:07)
[2020-09-03] MEDS: MORPHINE 4 MG/ML INJ IV (12:13)
== END 2020-09-03 13:30 | disposition home or self-care (01) ==
PROVIDERS: Emergency Provider Emergency Medicine; PCP Family Medicine
DX: M32.9 Systemic lupus erythematosus, unspecified (principal)
CPT/HCPCS: 36415; 80053; 84703; 85025; 85651; 86140; 96361; 96374; 96375; 99284; J1885; J2270; J2405; J2930

== ENCOUNTER 2020-11-04 10:31 | Emergency (ER) | payer OTHER, SELFPAY ==
--- NOTE | 2020-11-04 10:56 | DI.RAD.S_ITS ---
PROCEDURE: XR HIP W PEL IF DONE LT 2V INDICATIONS: pain from fall TECHNIQUE: AP pelvis with lateral view(s) of the left hip(s). COMPARISON: None. FINDINGS: Bones: No fractures or dislocations. Pelvic ring appears intact. No suspicious bony lesions. Soft tissues: The visualized bowel gas pattern is normal. No suspicious soft tissue calcifications. IMPRESSION: No gross acute left hip fracture or dislocation. Dictated by: Delonte King M.D. on 11/04/2020 at 11:21 Approved by: Delonte King M.D. on 11/04/2020 at 11:22
[2020-11-04 13:15] VITALS: BP 141/89; PULSE 82; RESP 16; O2SAT 98
[2020-11-04 13:34] VITALS: TEMP 36.8
--- NOTE | 2020-11-04 14:13 | ED.LOWEXIN ---
HPI - Extremity Injury (Lower) <Conchis Lamar, [employer] - Last Filed: 11/04/20 16:49> General Chief Complaint: Extremity Injury, Lower Stated Complaint: si joint disfuntion/left hip severe pain Time Seen by Provider: 11/04/20 13:34 Source: patient Mode of arrival: Ambulatory Limitations: no limitations History of Present Illness HPI Narrative: The patient is a 45-year-old female nonsmoker with history of remote back injury who presents with a chief complaint of left hip pain after ground level fall earlier this month. She states that she went to an outside facility emergency department twice for pain. Initially she was started on baclofen, went back was given [place] after an x-ray. Her initial visit was on 10/25, and she stated she fell on 10/23. She states she had a she mechanical fall, and slipped landing on the tile floor. She denies any new incontinence of bladder, denies any incontinence of bowel, denies any numbness of her groin. She has not taken anything for pain for the past few days. She states that she was given a Toradol injection an outside facility that helped, was not given a prescription. She states she has been prescribed baclofen and [place] for this fall previously. Related Data Home Medications Medication Instructions Recorded Confirmed desvenlafaxine succinate 50 mg PO QPM 10/31/19 10/31/19 topiramate [Topamax] 50 mg PO BID 10/31/19 10/31/19 Previous Rx's Medication Instructions Recorded cyclobenzaprine 10 mg PO TID PRN #14 tab 10/31/19 ketorolac 10 mg PO TID PRN #14 tab 10/31/19 ondansetron 4 mg PO Q6H PRN #20 tab 10/31/19 hydrocodone-acetaminophen 1 tab PO Q6H PRN #7 tab 09/03/20 methylprednisolone [Medrol (Carter)] See Rx Instructions .ROUTE 09/03/20 .COMPLEX #21 each ondansetron 4 mg PO Q8H PRN #10 tab 09/03/20 cyclobenzaprine 10 mg PO TID PRN #20 tab 11/04/20 ketorolac 10 mg PO TID #15 tab 11/04/20 lidocaine 1 patch TOPICAL DAILY PRN #15 ea 11/04/20 Allergies Allergy/AdvReac Type Severity Reaction Status Date / Time Sulfa (Sulfonamide Allergy Intermediate Vomiting Verified 10/31/19 12:09 Antibiotics) zolpidem [From Ambien] Allergy Intermediate Vomiting Verified 10/31/19 12:09 Penicillins Allergy Unknown Verified 10/31/19 12:09 oxycodone [From Percocet] AdvReac Intermediate Nausea Verified 10/31/19 12:09 Review of Systems <RAHEEM Jackson - Last Filed: 11/04/20 16:49> Review of Systems Narrative: GENERAL: Denies chills, fatigue, malaise, fever, sweats. HEENT: Denies sinus pain, ear pain, sore throat, difficulty swallowing, dizziness. RESPIRATORY: Denies dyspnea, cough, wheezing, hemoptysis, sputum. CARDIOVASCULAR: Denies chest pain, palpitations, orthopnea, edema, GASTROINTESTINAL: Denies nausea, vomiting, abdominal pain, diarrhea, constipation, melena. : Denies dysuria, frequency, incontinence, hematuria, urinary retention. MUSCULOSKELETAL: See HPI SKIN: Denies rash, skin lesions, or other NEUROLOGIC: Denies weakness, headache, numbness, change in speech, confusion, seizures, incoordination. PSYCHIATRIC: No concerning psychosocial issues. 12 point review of systems is negative except for those stated above Patient History <RAHEEM Jackson - Last Filed: 11/04/20 16:49> Social History Smoking Status: Never smoker Smoking Status: Never smoker alcohol intake frequency: 0-2 drinks per day Substance Use Type: does not use Exam <RAHEEM Jackson - Last Filed: 11/04/20 16:49> Narrative Exam Narrative: GENERAL: This is a well-nourished, well-developed patient, in appears slightly uncomfortable HEAD: Atraumatic. Normocephalic. No temporal or scalp tenderness. EYES: Pupils equal round and reactive. Extraocular motions intact. No scleral icterus. No injection or drainage. ENT: Nose without bleeding, purulent drainage or septal hematoma. Throat without erythema, tonsillar hypertrophy or exudate. Uvula midline. Airway patent. NECK: Trachea midline. No JVD or lymphadenopathy. Supple, nontender, no meningeal signs. CARDIOVASCULAR: Regular rate and rhythm RESPIRATORY: Clear to auscultation. Breath sounds equal bilaterally. No wheezes, rales, or rhonchi. No cough. No increased respiratory effort. No accessory muscle use GASTROINTESTINAL: Abdomen soft, non-tender, nondistended. No hepato-splenomegaly, or palpable masses. No guarding. EXTREMITIES: Positive pedal pulses bilaterally. Strength is equal upper lower extremities bilaterally. Pain to palpation of left that is diffuse. BACK: Pain to palpation of left paraspinal muscle in the lumbar region, pain to palpation of left hip that is diffuse. No palpable step-offs or deformities. No pain to palpation of midline CT or L-spine. SKIN: No rash or erythema on visible skin. No ecchymosis laceration or abrasion noted on lower back or left hip. Initial Vital Signs Initial Vital Signs: Vital Signs Pulse Rate 82 11/04/20 13:15 Respiratory Rate 16 11/04/20 13:15 Blood Pressure 141/89 H 11/04/20 13:15 Pulse Oximetry 98 11/04/20 13:15 <Linda Pereira MD - Last Filed: 11/05/20 07:33> Initial Vital Signs Initial Vital Signs: Vital Signs Pulse Rate 82 11/04/20 13:15 Respiratory Rate 16 11/04/20 13:15 Blood Pressure 141/89 H 11/04/20 13:15 Pulse Oximetry 98 11/04/20 13:15 Scores <RAHEEM Jackson - Last Filed: 11/04/20 16:49> GCS [place] coma scale eye opening: Spontaneous [place] coma scale verbal response: Orientated [place] coma scale motor response: Obey commands [place] coma scale total score: 15 Course <RAHEEM Jackson - Last Filed: 11/04/20 16:49> Orders Ordered: Discontinued Medications Cyclobenzaprine HCl (Cyclobenzaprine 10 Mg Tablet) 10 mg PO NOW ONE Stop: 11/04/20 14:02 Last Admin: 11/04/20 14:15 Dose: 10 mg Documented by: BEAU Ketorolac Tromethamine (Ketorolac 60 Mg/2 Ml Vial) 30 mg IM NOW ONE Stop: 11/04/20 14:02 Last Admin: 11/04/20 14:14 Dose: 30 mg Documented by: BEAU Lidocaine (Lidocaine Patch 1 Each Adh..Patch) 1 each TOP NOW ONE Stop: 11/04/20 14:02 Last Admin: 11/04/20 14:14 Dose: 1 each Documented by: BEAU Vital Signs Vital signs: Vital Signs - 8 hr 11/04/20 13:15 11/04/20 13:34 11/04/20 15:48 Temperature 98.3 F Pulse Rate 82 81 Respiratory Rate 16 16 Blood Pressure 141/89 H 144/70 H Pulse Oximetry 98 98 <Linda Pereira MD - Last Filed: 11/05/20 07:33> Orders Ordered: Discontinued Medications Cyclobenzaprine HCl (Cyclobenzaprine 10 Mg Tablet) 10 mg PO NOW ONE Stop: 11/04/20 14:02 Last Admin: 11/04/20 14:15 Dose: 10 mg Documented by: BEAU Ketorolac Tromethamine (Ketorolac 60 Mg/2 Ml Vial) 30 mg IM NOW ONE Stop: 11/04/20 14:02 Last Admin: 11/04/20 14:14 Dose: 30 mg Documented by: BEAU Lidocaine (Lidocaine Patch 1 Each Adh..Patch) 1 each TOP NOW ONE Stop: 11/04/20 14:02 Last Admin: 11/04/20 14:14 Dose: 1 each Documented by: BEAU Vital Signs Vital signs: Vital Signs - 8 hr 11/04/20 13:15 11/04/20 13:34 11/04/20 15:48 Temperature 98.3 F Pulse Rate 82 81 Respiratory Rate 16 16 Blood Pressure 141/89 H 144/70 H Pulse Oximetry 98 98 MDM - Extremity Injury (Lower) <RAHEEM Jackson - Last Filed: 11/04/20 16:49> Imaging Data Hip x-ray: Radiologist's Impression: [address] [place] [id number] ReportSigned Patient: Kosta Gold KMR#: [id number]: [id number]:[id number]/Sex: 45 / FDate of Service: 11/04/20Loc: EDAccession Number: [id number] Procedure: XR hip w pel if done LT 2V Ordering Provider: Linda Pereira MD PROCEDURE: XR HIP W PEL IF DONE LT 2V INDICATIONS: pain from fall TECHNIQUE: AP pelvis with lateral view(s) of the left hip(s). COMPARISON: None. FINDINGS: Bones: No fractures or dislocations. Pelvic ring appears intact. No suspicious bony lesions. Soft tissues: The visualized bowel gas pattern is normal. No suspicious soft tissue calcifications. IMPRESSION: No gross acute left hip fracture or dislocation. Dictated by: Delonte King M.D. on 11/04/2020 at 11:21 Approved by: Delonte King M.D. on 11/04/2020 at 11:22 [facility] Narrative Medical decision making narrative: The patient is a 45-year-old female who presents with a chief complaint of left hip pain after ground level fall on the 2nd of this month. She has negative x-rays. She denies any acute neurological changes such as incontinence of bowel, no incontinence of bladder or saddle anesthesia. She declines rectal exam in the emergency department. She states understanding that numbness of her groin, incontinence of bowel are return precautions. She feels much improved after the above-stated therapies and encouraged her to follow up with primary care provider in the next few days. Discussed at length come back to the ER for acute concerns. Discussed that cyclobenzaprine can be sedating, to not combine it with any alcohol or any other sedating agents as well not combining ketorolac with any other NSAIDs. Patient has no questions or concerns upon discharge and states understanding return precautions as well as follow-up care. Discharge Plan Departure Patient Disposition: Home Clinical Impression: Fall from ground level, Acute pain of left hip, Lumbar paraspinal muscle spasm Instructions: How to Prevent Falls, DI for Back Spasm, DI for Back Strain or Sprain, DI for Hip Pain Activity Restrictions/Additional Instructions: Thank you for trusting us with your care today As I discussed, your x-ray shows no acute fracture. This does not rule out a soft tissue injury such as a ligament or tendon injury. It is important that you follow up with primary care provider, especially if worsening or no improvement. There can be fractures that did not show up on initial x-ray. As discussed, I sent medications to [facility] in [place]. This includes cyclobenzaprine or Flexeril which is a muscle relaxer. This can be sedating. Do not take this and drive or combine it with any other sedating agents. I have also sent over ketorolac or Toradol, as well as lidocaine patch I have given you a prescription of ketorolac or Toradol. This is an NSAID. Do not combine it with other NSAIDs such as Aleve or ibuprofen. I suggest taking it with some food, as it can irritate your stomach. Please follow-up with primary care provider in the next 48-72 hours. As discussed, please come back to the emergency department for any acute concerns such as incontinence of bowel, numbness in her groin Prescriptions: New cyclobenzaprine 10 mg tablet 10 mg PO TID PRN (Reason: muscle spasm) Qty: 20 RF: 0 ketorolac 10 mg tablet 10 mg PO TID Qty: 15 RF: 0 lidocaine 5 % adhesive patch,medicated 1 patch topical DAILY PRN (Reason: pain) Qty: 15 RF: 0 No Action desvenlafaxine succinate 25 mg tablet extended release 24 hr 50 mg PO QPM RF: 0 topiramate [Topamax] 50 mg Tablet 50 mg PO BID RF: 0 ketorolac 10 mg tablet 10 mg PO TID PRN (Reason: pain) Qty: 14 RF: 0 cyclobenzaprine 10 mg tablet 10 mg PO TID PRN (Reason: muscle spasm) Qty: 14 RF: 0 ondansetron 4 mg tablet,disintegrating 4 mg PO Q6H PRN (Reason: nausea and vomiting) Qty: 20 RF: 0 hydrocodone-acetaminophen 5-325 mg tablet 1 tab PO Q6H PRN (Reason: pain) Qty: 7 RF: 0 methylprednisolone [Medrol (Carter)] 4 mg tablets,dose pack See Rx Instructions .ROUTE .COMPLEX Qty: 21 RF: 0 ondansetron 4 mg tablet,disintegrating 4 mg PO Q8H PRN (Reason: nausea and vomiting) Qty: 10 RF: 0 Referrals: Melanie Snider MD [Primary Care Provider] - <Linda Pereira MD - Last Filed: 11/05/20 07:33> [facility] I was immediately available in the department for consultation throughout this patient's visit. I agree with documentation as above. Linda Pereira MD
[2020-11-04] MEDS: KETOROLAC 60 MG/2 ML VIAL 30 MG IM (14:14)
[2020-11-04] MEDS: LIDOCAINE PATCH 1 EACH ADH..PATCH TOP (14:14)
[2020-11-04] MEDS: CYCLOBENZAPRINE 10 MG TABLET PO (14:15)
[2020-11-04 15:48] VITALS: BP 144/70; PULSE 81; RESP 16; O2SAT 98
== END 2020-11-04 15:48 | disposition home or self-care (01) ==
PROVIDERS: Emergency Provider Nurse Practitioner Family; PCP Family Medicine
DX: M25.552 Pain in left hip (principal); M62.830 Muscle spasm of back; W19.XXXA Unspecified fall, initial encounter
CPT/HCPCS: 73502; 96372; 99283; J1885

== ENCOUNTER → 2021-03-13 13:51 | Outpatient (CLI) | payer OTHER, SELFPAY ==
--- NOTE | 2021-03-13 13:52 | DI.RAD.S_ITS ---
PROCEDURE: XR WRIST RT MIN 3V INDICATIONS: reeval R 2nd-4th fingers, hand, wrist, forearm TECHNIQUE: A total of 4 views of the wrist were acquired. COMPARISON: [facility], CR, XR HAND 3+ VIEWS BILATERAL, 08/15/2018, 10:46. [facility], CR, XR HAND 3+ VIEWS RIGHT, 03/09/2021, 12:50. FINDINGS: Bones: No fractures or dislocations. No suspicious bony lesions. Scaphoid view: No trauma Soft tissues: No suspicious soft tissue calcifications. IMPRESSION: No trauma found. Incidental note is made of a benign bone island within the distal medullary space of the radius. This was present without chart changer time in July of 2018. Dictated by: Kris Taylor M.D. on 03/13/2021 at 14:18 Approved by: Kris Taylor M.D. on 03/13/2021 at 14:19
--- NOTE | 2021-03-13 13:52 | DI.RAD.S_ITS ---
PROCEDURE: XR FOREARM RT 2V INDICATIONS: reeval R 2nd-4th fingers, hand, wrist, forearm TECHNIQUE: 2 views of the forearm were acquired. COMPARISON: None. FINDINGS: Bones: No fractures or dislocations. No suspicious bony lesions. Soft tissues: No suspicious soft tissue calcifications or masses. IMPRESSION: Unremarkable right forearm radiographs Dictated by: Franco Jade M.D. on 03/13/2021 at 18:00 Approved by: Franco Jade M.D. on 03/13/2021 at 18:03 PATIENT NAME: TONY GONZALEZ : 1975 EXAM DATE: 03/13/2021 13:58 ORD. : DOUGLAS DUTTA CC: MODALITY: CR PATIENT TYPE: Out CONTRAST MEDIA: STATION ID: [id number] FLUORO TIME: PATIENT NAME: TONY GONZALEZ : 1975 EXAM DATE: 03/13/2021 13:58 ORD. : DOUGLAS DUTTA CC: MODALITY: CR PATIENT TYPE: Out CONTRAST MEDIA: STATION ID: [id number] FLUORO TIME:
--- NOTE | 2021-03-13 13:52 | DI.RAD.S_ITS ---
PROCEDURE: XR HAND RT MIN 3V INDICATIONS: Re-evaluate R 2nd-4th fingers, hand, wrist, forearm TECHNIQUE: 3 views of the hand(s) acquired. COMPARISON: [facility], CR, XR HAND 3+ VIEWS RIGHT, 03/09/2021, 12:50. FINDINGS: Bones: No fractures or dislocations. Carpal bones are normally aligned. No suspicious bony lesions. Soft tissues: No suspicious soft tissue calcifications. IMPRESSION: No trauma found. Dictated by: Kris Taylor M.D. on 03/13/2021 at 14:17 Approved by: Kris Taylor M.D. on 03/13/2021 at 14:18
== END ==
PROVIDERS: PCP Registered Nurse Diabetes Educator; Referring Provider Registered Nurse Diabetes Educator; Visit Provider Registered Nurse Diabetes Educator
DX: M79.601 Pain in right arm (principal); M79.641 Pain in right hand; M79.644 Pain in right finger(s)
CPT/HCPCS: 73090; 73110; 73130

== ENCOUNTER → 2021-07-17 11:25 | Outpatient (CLI) | payer OTHER, SELFPAY ==
--- NOTE | 2021-07-17 11:28 | DI.RAD.S_ITS ---
PROCEDURE: XR KNEE RT 3V INDICATIONS: reeval R knee pain s/p injury 07/14. TECHNIQUE: 3 views of the knee were acquired. COMPARISON: [facility], CR, XR KNEE LT 3V, 08/05/2018, 11:41. FINDINGS: Bones: No fractures or dislocations. No suspicious bony lesions. Soft tissues: No joint effusion. No suspicious soft tissue calcifications. IMPRESSION: No right knee fracture or dislocation. No significant joint effusion. Dictated by: Delonte King M.D. on 07/17/2021 at 12:00 Approved by: Delonte King M.D. on 07/17/2021 at 12:03
== END ==
PROVIDERS: PCP Registered Nurse Diabetes Educator; Referring Provider Registered Nurse Diabetes Educator; Visit Provider Registered Nurse Diabetes Educator
DX: M25.561 Pain in right knee (principal)
CPT/HCPCS: 73562

== ENCOUNTER → 2022-04-22 13:48 | Outpatient (CLI) | payer OTHER, SELFPAY ==
--- NOTE | 2022-04-22 13:50 | DI.MRI.S_ITS ---
PROCEDURE: MR KNEE LT WO CON INDICATIONS: chronic left knee pain, unrelieved by conservative measures TECHNIQUE: Noncontrast sagittal PD fast spin echo and T2 fast spin echo with fat saturation, sagittal 3-D FLASH with fat saturation; coronal T1 spin echo and PD fast spin echo with fat saturation, and axial PD fast spin echo with fat saturation through the knee. COMPARISON: [facility], CR, XR KNEE 3 VIEWS LEFT, 02/24/2022, 10:14. FINDINGS: Image quality: Excellent. Menisci: The medial and lateral menisci demonstrate normal morphology and internal signal. The meniscal root ligaments appear intact. Cruciate ligaments: The anterior and posterior cruciate ligaments appear intact. Medial structures: The medial collateral ligament appears intact. The posterior oblique ligament, semimembranosus tendon insertions, oblique popliteal ligament, and meniscocapsular junction appear intact. Visualized portions of the pes anserinus tendons appear normal. No abnormal bursal fluid. Lateral structures: The lateral collateral ligament, long and short heads of the biceps femoris tendon appear intact. The popliteus tendon appears normal; the popliteofibular ligament appears intact. The posterosuperior and anteroinferior popliteomeniscal fascicles appear intact. The arcuate and fabellofibular ligaments appear intact, on either side of the lateral inferior geniculate artery. Iliotibial band appears normal. Anterior structures: Distal quadriceps tendinosis and low-grade partial-thickness tear at its superior patellar insertion is seen. Tendinosis and low-grade partial-thickness tear involving proximal patellar tendon at its inferior patellar insertion is also noted. No full-thickness tendon rupture. Patellar alignment is normal. No femoral trochlear dysplasia or ventral trochlear prominence. No edema in the infrapatellar fat pad. Bones and cartilage: No bone marrow contusions or fractures. Articulating cartilages are intact. Heterogeneously T1 hypointense and T2 hyperintense structure is seen within fibular head and measures up to 1.6 x 1.4 x 1.5 cm in size. No surrounding edema or cortical destruction is seen. Joint space: There is small knee joint fluid. No Montalvo's cyst. Normal appearing synovial plicae are incidentally noted. IMPRESSION: 1. Distal quadriceps tendinosis and low-grade partial-thickness tear. Proximal patellar tendinosis and low-grade partial-thickness tear. No full-thickness tendon rupture. 2. No gross focal labral tear. Cruciate ligaments are intact. 3. 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 Dictated by: Delonte King M.D. on 04/22/2022 at 16:38 Approved by: Delonte King M.D. on 04/22/2022 at 16:43
== END ==
PROVIDERS: PCP Registered Nurse Diabetes Educator; Referring Provider Family Medicine; Visit Provider Family Medicine
DX: M25.562 Pain in left knee (principal); M79.642 Pain in left hand; S76.112A Strain of left quadriceps muscle, fascia and tendon, initial encounter; M79.641 Pain in right hand; Z82.61 Family history of arthritis
CPT/HCPCS: 73721

== ENCOUNTER → 2022-04-27 15:29 | Outpatient (CLI) | payer OTHER, SELFPAY ==
--- NOTE | 2022-04-27 15:31 | DI.RAD.S_ITS ---
PROCEDURE: XR HAND LT MIN 3V INDICATIONS: bilateral hand pain TECHNIQUE: Three views of the hand(s) acquired. COMPARISON: [facility], , XR HAND RT MIN 3V, 03/13/2021, 13:58. FINDINGS: Bones: No fractures or dislocations. Carpal bones are normally aligned. No suspicious bony lesions. Soft tissues: No suspicious soft tissue calcifications. IMPRESSION: Intact left hand. Dictated by: Nicol Domingo M.D. on 04/27/2022 at 17:32 Approved by: Nicol Domingo M.D. on 04/27/2022 at 17:33
--- NOTE | 2022-04-27 15:31 | DI.RAD.S_ITS ---
PROCEDURE: XR HAND RT MIN 3V INDICATIONS: bilateral hand pain TECHNIQUE: Three views of the hand(s) acquired. COMPARISON: [facility], , XR HAND RT MIN 3V, 03/13/2021, 13:58. FINDINGS: Bones: No fractures or dislocations. Carpal bones are normally aligned. No suspicious bony lesions. Soft tissues: No suspicious soft tissue calcifications. IMPRESSION: Intact right hand. Dictated by: Nicol Domingo M.D. on 04/27/2022 at 17:33 Approved by: Nicol Domingo M.D. on 04/27/2022 at 17:33
== END ==
PROVIDERS: PCP Registered Nurse Diabetes Educator; Referring Provider Registered Nurse Diabetes Educator; Visit Provider Registered Nurse Diabetes Educator
DX: M79.7 Fibromyalgia; Z82.61 Family history of arthritis; M79.641 Pain in right hand; M79.642 Pain in left hand
CPT/HCPCS: 73130

== ENCOUNTER 2022-06-15 23:33 | Emergency (ER) | payer OTHER, SELFPAY ==
[2022-06-15 23:41] VITALS: BP 149/90; PULSE 94; RESP 18; TEMP 36.6; O2SAT 98
--- NOTE | 2022-06-15 23:47 | DI.RAD.S_ITS ---
PROCEDURE: XR KNEE LT 3V INDICATIONS: stated has torn tendons in knee,injured it again in shower . TECHNIQUE: 3 views of the knee were acquired. COMPARISON: [facility], NELLI, XR KNEE LT 3V, 08/05/2018, 11:41. FINDINGS: Bones: No fractures or dislocations. No suspicious bony lesions. Soft tissues: No joint effusion. No suspicious soft tissue calcifications. IMPRESSION: No acute finding. Dictated by: Ayden Gaming M.D. on 06/16/2022 at 0:21 Approved by: Ayden Gaming M.D. on 06/16/2022 at 0:21
--- NOTE | 2022-06-16 00:47 | ED_ITS ---
HPI - Extremity Injury (Lower) General Chief Complaint: Extremity Injury, Lower Stated Complaint: PAIN IN LEFT KNEE FELL IN SHOWER Time Seen by Provider: 06/16/22 00:47 Source: patient Mode of arrival: Ambulatory History of Present Illness HPI Narrative: 47-year-old female nonsmoker with history of left knee injury presents with a chief complaint of an accidental fall tonight resulting in a recurrence of injury. She is been dealing with a low-grade quadriceps and patellar tendon tear since an injury a few months ago and has been managed by physical therapy in wears a hinged knee brace routinely. This evening she was in the shower and slipped, in doing so she slid forward and struck her knee on the wall and now has significant pain. She still has baseline range of motion and sensation but significantly worsening pain. She denies any head neck or back problems she has no hip or ankle injury. Her pain is worse with motion and improves with rest Related Data Previous Rx's Medication Instructions Recorded bupropion HCl 300 mg 24 hr tablet, 300 mg PO QAM #90 tabs 03/13/21 extended release (Wellbutrin XL) naproxen 500 mg tablet 500 mg PO BID #30 tabs 07/17/21 levothyroxine 150 mcg tablet 150 mcg PO DAILY #90 tabs 08/01/21 (Synthroid) topiramate 100 mg tablet (Topamax) 100 mg PO DAILY #270 tabs 08/01/21 omeprazole 20 mg capsule,delayed 20 mg PO BID #60 caps 09/09/21 release albuterol sulfate 90 mcg/actuation 2 puff inhalation Q4-6H PRN 04/17/22 aerosol inhaler shortness of breath or wheezing #8.5 grams tramadol 50 mg tablet 50 mg PO TID PRN pain #30 tabs 04/24/22 ondansetron HCl 4 mg tablet 4 mg PO Q8H PRN nausea and 05/27/22 vomiting #30 tabs hydrocodone 5 mg-acetaminophen 325 1 tab PO Q4-6H PRN pain #10 tabs 06/16/22 mg tablet Allergies Allergy/AdvReac Type Severity Reaction Status Date / Time Sulfa (Sulfonamide Allergy Intermediate Vomiting Verified 04/13/22 12:13 Antibiotics) zolpidem [From Ambien] Allergy Intermediate Vomiting Verified 04/13/22 12:13 Penicillins Allergy Unknown Verified 04/13/22 12:13 Review of Systems Review of Systems Narrative: GENERAL: Denies chills, fatigue, malaise, fever, sweats. HEENT: Denies sinus pain, ear pain, sore throat, difficulty swallowing, dizziness. RESPIRATORY: Denies dyspnea, cough, wheezing, hemoptysis, sputum. CARDIOVASCULAR: Denies chest pain, palpitations, orthopnea, edema, GASTROINTESTINAL: Denies nausea, vomiting, abdominal pain, diarrhea, constipation, melena. : Denies dysuria, frequency, incontinence, hematuria, urinary retention. MUSCULOSKELETAL: See HPI SKIN: Denies rash, skin lesions, or other NEUROLOGIC: Denies weakness, headache, numbness, change in speech, confusion, seizures, incoordination. PSYCHIATRIC: No concerning psychosocial issues. 12 point review of systems is negative except for those stated above Patient History Medical History Abdominal pain Anemia (~2018) Ankle pain (~2008) Anxiety (~2007) Asthma (~1984) Chronic back pain (~2004) Depression Fibromyalgia (~2007) Foot pain (~2008) Hypothyroidism Insomnia Libido, decreased Migraines (~1992) Obesity PTSD (post-traumatic stress disorder) (~2004) Seizures (~1984) Shoulder pain (~2014) Surgical History Anesthesia History of ankle surgery History of section History of shoulder surgery Family History Mother Diabetes mellitus Brother Accident Grandmother Diabetes mellitus Social History Smoking Status: Never smoker Smoking Status: Never smoker alcohol intake frequency: 0-2 drinks per day Substance Use Type: does not use Exam Narrative Exam Narrative: GENERAL: 47[] year old patient appears stated age. Well-developed patient, in mild distress. HEAD: Atraumatic. Normocephalic. EYES: Pupils equal round and reactive. Extraocular motions intact. No scleral icterus. No injection or drainage. ENT: Nose without bleeding, purulent drainage. Throat without erythema, tonsillar hypertrophy or exudate. Airway patent. NECK: Trachea midline. Non tender CARDIOVASCULAR: Regular rate and rhythm without murmurs, gallops, or rubs. RESPIRATORY: Clear to auscultation. Breath sounds equal bilaterally. No wheezes, rales, or rhonchi. GASTROINTESTINAL: Abdomen soft, non-tender, nondistended. EXTREMITIES: Decreased range of motion secondary to pain, no significant effusion, erythema, ecchymosis. Patient able to extend at the knee at her baseline though she complains of pain. This is closed, isolated and neurovascularly intact BACK: Nontender without deformity or crepitance. No flank tenderness. NEURO: AOx3. SKIN: No rash or erythema of visible areas Initial Vital Signs Initial Vital Signs: Vital Signs Temperature 98 F 06/15/22 23:41 Pulse Rate 94 H 06/15/22 23:41 Respiratory Rate 18 06/15/22 23:41 Blood Pressure 149/90 H 06/15/22 23:41 Pulse Oximetry 98 06/15/22 23:41 Oxygen Delivery Method 06/15/22 23:41 Course Orders Ordered: ED Orders 06/15/22 23:47 XR knee LT 3V Stat 06/16/22 00:58 CT LE LT wo con Stat Discontinued Medications Hydrocodone Bitart/Acetaminophen (Hydrocodone/Acet 5/325 Tablet) 2 tab PO NOW ONE Stop: 06/16/22 00:59 Last Admin: 06/16/22 01:03 Dose: 2 tab Documented By: ADK Hydrocodone Bitart/Acetaminophen (Hydrocodone/Acet 5/325 Prepack) 1 bottle MISC SEEINSTR ONE Stop: 06/16/22 01:55 Last Admin: 06/16/22 02:11 Dose: 1 bottle Documented By: AP Vital Signs Vital signs: Vital Signs - 8 hr 06/15/22 23:41 06/16/22 02:15 Temperature 98 F Pulse Rate 94 H 88 Respiratory Rate 18 17 Blood Pressure 149/90 H Pulse Oximetry 98 98 Oxygen Delivery Method Room Air Room Air MDM - Extremity Injury (Lower) Imaging Data Extremity x-ray #1: Radiologist's Impression: [address] [address] XRay Report Signed Patient: Kosta Gold MR#: [id number] : 1975 Acct:[id number] Age/Sex: 47 / F Date of Service: 06/15/22 Loc: ED Accession Number: [id number] ?? Procedure: XR knee LT 3V Ordering Provider: Rosendo Robles D.O. PROCEDURE:? XR KNEE LT 3V ? INDICATIONS:? stated has torn tendons in knee,injured it again in shower . ? TECHNIQUE:? 3 views of the knee were acquired.? ? COMPARISON:? [facility], CR, XR KNEE LT 3V, 08/05/2018, 11:41. ? FINDINGS:? ? Bones:? No fractures or dislocations.? No suspicious bony lesions.? ? Soft tissues:? No joint effusion.? No suspicious soft tissue calcifications.? ? ? IMPRESSION:? No acute finding. ? ? Dictated by: Ayden Gaming M.D. on 06/16/2022 at 0:21 ? ? Approved by: Ayden Gaming M.D. on 06/16/2022 at 0:21 CT LE: Radiologist's Impression: [address] [address] [address] Scan Report Signed Patient: Kosta Gold MR#: [id number] : 1975 Acct:[id number] Age/Sex: 47 / F Date of Service: 06/16/22 Loc: ED Accession Number: [id number] ?? Procedure: CT LE LT wo con Ordering Provider: Rosendo Robles D.O. PROCEDURE:? CT LE LT W CON ? INDICATIONS:? significant pain after injury, no findings on Xray, cannot f ? TECHNIQUE:? Noncontrast 1-1.5 mm axial sections acquired from the mid-patella to the proximal tibia, with coronal and sagittal reformats.? ? COMPARISON:? [facility], MR, MR KNEE LT WO CON, 04/22/2022, 14:51. ? FINDINGS:? No acute fracture.? Normal patellar height and position.? Degenerative changes as described on MRI.? Small knee joint effusion. ? ? IMPRESSION:? No acute finding. ? Dictated by: Ayden Gaming M.D. on 06/16/2022 at 1:23 ? ? Approved by: Ayden Gaming M.D. on 06/16/2022 at 1:25 ? Discharge Plan Departure Patient Disposition: Home Clinical Impression: Acute pain of left knee Instructions: DI for Knee Pain Activity Restrictions/Additional Instructions: *You have been diagnosed with [acute on chronic left knee pain. History and physical exam are reassuring, x-ray and CT scan showed no evidence of fracture or dislocation] *What to do: *Please continue to take your regular medications as directed. [x ] New medication prescriptions sent to your pharmacy: [[facility] in [place] ] [ ] New medication written as a paper prescription [ ] No new medications given *Please follow up with your primary care provider in 2-3 days, call for an appointment. Let them know you were seen in the Emergency Department and that we ask that you be seen in follow up. We will electronically transmit a record of today's note if your PCP is in our system *If you do not have a primary care provider please contact the [facility] Resource line at [phone]. They will ask some questions about your medical history and help get you set up with a doctor in the community. *Return to Emergency Department if you should have any new, worsening or concerning symptoms, such as [fever greater than 101 F, shaking chills, worsening pain, persistent vomiting or other bothersome symptoms] Prescriptions: New hydrocodone-acetaminophen 5-325 mg tablet 1 tab PO Q4-6H PRN (Reason: pain) Qty: 10 0RF No Action topiramate [Topamax] 100 mg tablet 100 mg PO DAILY Qty: 270 0RF Rx Instructions: Must have labs prior to next refill. levothyroxine [Synthroid] 150 mcg tablet 150 mcg PO DAILY Qty: 90 0RF Rx Instructions: Must have labs prior to next refill. albuterol sulfate 90 mcg/actuation HFA aerosol inhaler 2 puff inhalation Q4-6H PRN (Reason: shortness of breath or wheezing) Qty: 8.5 1RF tramadol 50 mg tablet 50 mg PO TID PRN (Reason: pain) Qty: 30 0RF ondansetron HCl 4 mg tablet 4 mg PO Q8H PRN (Reason: nausea and vomiting) Qty: 30 0RF bupropion HCl [Wellbutrin XL] 300 mg tablet extended release 24 hr 300 mg PO QAM Qty: 90 3RF naproxen 500 mg tablet 500 mg PO BID Qty: 30 1RF Rx Instructions: After 7 days, change to as needed use only. Stop if GI upset. omeprazole 20 mg capsule,delayed release(DR/EC) 20 mg PO BID Qty: 60 1RF Rx Instructions: 20 minutes before 2 biggest meals of the day. Referrals: Benson Jacob ARNP [Primary Care Provider] - Visit Report Forms: Patient Portal/API
--- NOTE | 2022-06-16 00:58 | DI.CT.S_ITS ---
PROCEDURE: CT LE LT W CON INDICATIONS: significant pain after injury, no findings on Xray, cannot f TECHNIQUE: Noncontrast 1-1.5 mm axial sections acquired from the mid-patella to the proximal tibia, with coronal and sagittal reformats. COMPARISON: [facility], MR, MR KNEE LT WO CON, 04/22/2022, 14:51. FINDINGS: No acute fracture. Normal patellar height and position. Degenerative changes as described on MRI. Small knee joint effusion. IMPRESSION: No acute finding. Dictated by: Ayden Gaming M.D. on 06/16/2022 at 1:23 Approved by: Ayden Gaming M.D. on 06/16/2022 at 1:25
[2022-06-16] MEDS: HYDROCODONE/ACET 5/325 TABLET 2 TAB PO (01:03)
[2022-06-16] MEDS: HYDROCODONE/ACET 5/325 PREPACK 1 BOTTLE MISC (02:11)
[2022-06-16 02:15] VITALS: PULSE 88; RESP 17; O2SAT 98
== END 2022-06-16 02:15 | disposition home or self-care (01) ==
PROVIDERS: Emergency Provider Emergency Medicine; PCP Registered Nurse Diabetes Educator
DX: M25.562 Pain in left knee (principal); W18.2XXA Fall in (into) shower or empty bathtub, initial encounter
CPT/HCPCS: 73562; 73700; 99283

== ENCOUNTER 2022-10-13 17:26 | Emergency (ER) | payer OTHER, SELFPAY ==
[2022-10-13 17:38] VITALS: BP 161/75; PULSE 74; RESP 20; TEMP 37.2; O2SAT 98
[2022-10-13 18:07] LABS: Add Manual Diff / Slide Review NO; Basophils Absolute Auto 100 /uL (0-100); Basophils Percent Auto 1.4 % (0-2); Eosinophils Absolute Auto 300 /uL (0-450); Eosinophils Percent Auto 3.4 % (2-4); Hematocrit 40.9 % (36-46); Hemoglobin 14.2 g/dL (12.0-16.0); Lymphocytes Absolute Auto 2400 /uL (1100-4500); Lymphocytes Percent Auto 27.3 % (25-40); Mean Corpuscular HGB Conc 34.6 % (30-36); Mean Corpuscular Hemoglobin 29.3 PG (26-34); Mean Corpuscular Volume 84.5 fL (80-100); Monocytes Absolute Auto 600 /uL (0-900); Monocytes Percent Auto 6.9 % (3-14); Neutrophils Absolute Auto 5300 /uL (1500-7000); Platelet Count 303 X10^3/uL (150-400); Red Blood Cell Count 4.84 X10^6/uL (4.0-5.2); Red Cell Distribution Width 13.6 % (11.6-14.8); White Blood Cell Count 8.7 X10^3/uL (4.5-11.0)
[2022-10-13 18:23] LABS: Alanine Aminotransferase 31 IU/L (<35); Albumin 4.5 g/dL (3.5-5.0); Albumin Globulin Ratio 1.2 (1.0-2.8); Alkaline Phosphatase 103 U/L (38-126); Aspartate Aminotransferase 29 IU/L (14-36); BUN Creatinine Ratio 21.5 (6-22); Bilirubin Total 0.5 mg/dL (0.2-1.3); Blood Urea Nitrogen 14 mg/dL (7-17); Calcium 9.5 mg/dL (8.4-10.2); Carbon Dioxide 26 mmol/L (22-32); Chloride 103 mmol/L (98-107); Estimated Glomerular Filt Rate > 60 mL/min (>60); Globulin 3.8 g/dL (1.7-4.1); Glucose 92 mg/dL (70-100); HEMOLYSIS < 15 (0-50); Lipase 44 U/L (23-300); Sodium 138 mmol/L (137-145); Total Protein 8.3 g/dL (6.3-8.2)
[2022-10-13 19:16] LABS: Bacteria Urine Moderate (10-30); Culture Indicated Urine Specimen Cultured; RBC Urine 1-5/HPF (0-5/HPF); Squamous Epithelial Cell Urine 5-10 /HPF (0-5/HPF); WBC Urine 5-10/HPF (0-5/HPF)
--- NOTE | 2022-10-13 21:48 | DI.RAD.S_ITS ---
PROCEDURE: XR ACUTE ABDOMEN SERIES INDICATIONS: Left flank pain TECHNIQUE: One view chest and two views of the abdomen were acquired. COMPARISON: CT, KIDNEY/ URETER/BLADDER, 03/18/2015, 9:47. FINDINGS: Surgical changes and devices: None. Chest: Lungs are clear. Heart size is normal. No pleural effusions. No pneumoperitoneum. Abdomen: Bowel gas pattern is normal. No suspicious calcifications. Bones: No suspicious bony lesions. IMPRESSION: 1. No acute intra-abdominal radiographic abnormality. Dictated by: Shalom Cheng M.D. on 10/13/2022 at 23:38 Approved by: Shalom Cheng M.D. on 10/13/2022 at 23:38
--- NOTE | 2022-10-13 21:48 | ED.GENADULT ---
HPI - General Adult General Chief complaint: Abdominal Pain Stated complaint: LT. ABD. PAIN/PAIN between shoulder blade Time Seen by Provider: 10/13/22 21:39 Source: patient Mode of arrival: Ambulatory History of Present Illness HPI narrative: 47-year-old female nonsmoker with noncontributory medical history presents with a chief complaint of a few days of left-sided lower rib pain that radiates into her back. She denies any trauma or injury but states that motion, deep breaths and coughing seems to make her pain worse. She denies runny nose or sore throat and she is had no fever or chills. She denies nausea or vomiting. She has no abdominal pain, nausea, vomiting or diarrhea. She denies any dysuria, frequency or urgency Related Data Previous Rx's Medication Instructions Recorded bupropion HCl 300 mg 24 hr tablet, 300 mg PO QAM #90 tabs 03/13/21 extended release (Wellbutrin XL) naproxen 500 mg tablet 500 mg PO BID #30 tabs 07/17/21 levothyroxine 150 mcg tablet 150 mcg PO DAILY #90 tabs 08/01/21 (Synthroid) topiramate 100 mg tablet (Topamax) 100 mg PO DAILY #270 tabs 08/01/21 omeprazole 20 mg capsule,delayed 20 mg PO BID #60 caps 09/09/21 release albuterol sulfate 90 mcg/actuation 2 puff inhalation Q4-6H PRN 04/17/22 aerosol inhaler shortness of breath or wheezing #8.5 grams tramadol 50 mg tablet 50 mg PO TID PRN pain #30 tabs 04/24/22 ondansetron HCl 4 mg tablet 4 mg PO Q8H PRN nausea and 05/27/22 vomiting #30 tabs hydrocodone 5 mg-acetaminophen 325 1 tab PO Q4-6H PRN pain #10 tabs 06/16/22 mg tablet ciprofloxacin HCl 500 mg tablet 500 mg PO BID #14 tabs 10/13/22 (Cipro) cyclobenzaprine 10 mg tablet 10 mg PO TID PRN muscle spasm #14 10/13/22 tabs ketorolac 10 mg tablet 10 mg PO Q6H PRN pain #14 tabs 10/13/22 Allergies Allergy/AdvReac Type Severity Reaction Status Date / Time Sulfa (Sulfonamide Allergy Intermediate Vomiting Verified 04/13/22 12:13 Antibiotics) zolpidem [From Ambien] Allergy Intermediate Vomiting Verified 04/13/22 12:13 Penicillins Allergy Unknown Verified 04/13/22 12:13 Review of Systems Review of Systems Narrative: GENERAL: Denies chills, fatigue, malaise, fever, sweats. HEENT: Denies sinus pain, ear pain, sore throat, difficulty swallowing, dizziness. RESPIRATORY: Denies dyspnea, cough, wheezing, hemoptysis, sputum. CARDIOVASCULAR: Denies chest pain, palpitations, orthopnea, edema, GASTROINTESTINAL: See HPI : See HPI MUSCULOSKELETAL: denies weakness, joint pain, or bony pain SKIN: Denies rash, skin lesions, or other NEUROLOGIC: Denies weakness, headache, numbness, change in speech, confusion, seizures, incoordination. PSYCHIATRIC: No concerning psychosocial issues. 12 point review of systems is negative except for those stated above Patient History Medical History Abdominal pain Anemia (~2018) Ankle pain (~2008) Anxiety (~2007) Asthma (~1984) Chronic back pain (~2004) Depression Fibromyalgia (~2007) Foot pain (~2008) Hypothyroidism Insomnia Libido, decreased Migraines (~1992) Obesity PTSD (post-traumatic stress disorder) (~2004) Seizures (~1984) Shoulder pain (~2014) Surgical History Anesthesia History of ankle surgery History of section History of shoulder surgery Family History Mother Diabetes mellitus Brother Accident Grandmother Diabetes mellitus Social History Smoking Status: Never smoker Smoking Status: Never smoker alcohol intake frequency: 0-2 drinks per day Substance Use Type: does not use Exam Narrative Exam Narrative: GENERAL: [47] year old patient appears stated age. Well-developed patient, in mild distress. HEAD: Atraumatic. Normocephalic. EYES: Pupils equal round and reactive. Extraocular motions intact. No scleral icterus. No injection or drainage. ENT: Nose without bleeding, purulent drainage. Throat without erythema, tonsillar hypertrophy or exudate. Airway patent. NECK: Trachea midline. Non tender CARDIOVASCULAR: Regular rate and rhythm without murmurs, gallops, or rubs. Significant tenderness on the left lower rib along its full distribution, no pain in the abdomen itself, no crepitance, erythema evidence of rash RESPIRATORY: Clear to auscultation. Breath sounds equal bilaterally. No wheezes, rales, or rhonchi. GASTROINTESTINAL: Abdomen soft, non-tender, nondistended. EXTREMITIES: No edema or joint tenderness. BACK: Nontender without deformity or crepitance. No flank tenderness. NEURO: AOx3. SKIN: No rash or erythema of visible areas Initial Vital Signs Initial Vital Signs: Vital Signs Temperature 99.0 F 10/13/22 17:38 Pulse Rate 74 10/13/22 17:38 Respiratory Rate 20 10/13/22 17:38 Blood Pressure 161/75 H 10/13/22 17:38 Pulse Oximetry 98 10/13/22 17:38 Oxygen Delivery Method 10/13/22 17:38 Course Orders Ordered: ED Orders 10/13/22 21:48 XR acute abdomen series Stat Discontinued Medications Ketorolac Tromethamine (Ketorolac 30 Mg/Ml Vial) 15 mg IV NOW ONE Stop: 10/13/22 21:49 Last Admin: 10/13/22 22:07 Dose: 15 mg Documented By: GREGORY Ondansetron HCl (Ondansetron 4 Mg Odt) 4 mg PO NOW ONE Stop: 10/13/22 17:42 Last Admin: 10/13/22 23:54 Dose: Not Given Documented By: GREGORY Ondansetron HCl (Ondansetron 4 Mg/2 Ml Inj) 4 mg IV NOW ONE Stop: 10/13/22 17:42 Last Admin: 10/13/22 23:54 Dose: Not Given Documented By: GREGORY Vital Signs Vital signs: Vital Signs - 8 hr 10/13/22 23:34 10/14/22 00:04 Pulse Rate 62 78 Respiratory Rate 16 16 Blood Pressure 154/60 H 135/74 Pulse Oximetry 100 98 Oxygen Delivery Method Room Air Room Air Medical Decision Making Lab Data Result diagrams: 10/13/22 17:46 10/13/22 17:46 Labs: Lab Results 10/13/22 10/13/22 10/13/22 Range/Units 17:46 17:46 17:55 WBC 8.7 (4.5-11.0) X10^3/uL RBC 4.84 (4.0-5.2) X10^6/uL Hgb 14.2 (12.0-16.0) g/dL Hct 40.9 (36-46) % MCV 84.5 (80-100) fL MCH 29.3 (26-34) PG MCHC 34.6 (30-36) % RDW 13.6 (11.6-14.8) % Plt Count 303 (150-400) X10^3/uL Neut % (Auto) 61.0 (50-75) % Lymph % (Auto) 27.3 (25-40) % [place] % (Auto) 6.9 (3-14) % Eos % (Auto) 3.4 (2-4) % Baso % (Auto) 1.4 (0-2) % Neut # (Auto) 5300 (0555-3703) /uL Lymph # (Auto) 2400 (8782-1622) /uL [place] # (Auto) 600 (0-900) /uL Eos # (Auto) 300 (0-450) /uL Baso # (Auto) 100 (0-100) /uL Sodium 138 (137-145) mmol/L Potassium 4.0 (3.4-5.1) mmol/L Chloride 103 (98-107) mmol/L Carbon Dioxide 26 (22-32) mmol/L BUN 14 (7-17) mg/dL Creatinine 0.65 (0.52-1.04) mg/dL Estimated GFR > 60 (>60) mL/min BUN/Creatinine Ratio 21.5 (6-22) Glucose 92 (70-100) mg/dL Calcium 9.5 (8.4-10.2) mg/dL Total Bilirubin 0.5 (0.2-1.3) mg/dL AST 29 (14-36) IU/L ALT 31 (<35) IU/L Alkaline Phosphatase 103 (38-126) U/L Total Protein 8.3 H (6.3-8.2) g/dL Albumin 4.5 (3.5-5.0) g/dL Globulin 3.8 (1.7-4.1) g/dL Albumin/Globulin Ratio 1.2 (1.0-2.8) Lipase 44 (23-300) U/L Urine RBC 1-5/hpf (0-5/HPF) Urine WBC 5-10/hpf H (0-5/HPF) Ur Squamous Epith Cells 5-10 /hpf H (0-5/HPF) Urine Bacteria Moderate (10-30) H (None) Ur Culture Indicated? Specimen cultured Point of Care Testing Test Results Negative Urine Dip Bedside Urine Glucose Negative Bedside Urine Bilirubin - Negative Bedside Urine Ketone - Negative Urine Specific [place] 1.015 Bedside Urine Occult Blood - Negative Bedside Urine pH 6.5 Bedside Urine Protein - Negative Bedside Urine Urobilinogen - Negative Bedside Urine Nitrite - Negative Bedside Urine Leukocytes +/- 15 Esterase Point of care testing: Point of Care Testing Test Results Negative Urine Dip Bedside Urine Glucose Negative Bedside Urine Bilirubin - Negative Bedside Urine Ketone - Negative Urine Specific [place] 1.015 Bedside Urine Occult Blood - Negative Bedside Urine pH 6.5 Bedside Urine Protein - Negative Bedside Urine Urobilinogen - Negative Bedside Urine Nitrite - Negative Bedside Urine Leukocytes +/- 15 Esterase Discharge Plan Departure Patient Disposition: Home Clinical Impression: Abdominal wall pain in left flank, UTI (urinary tract infection) Instructions: DI for Urinary Tract Infection (UTI), DI for Flank Pain Activity Restrictions/Additional Instructions: *You have been diagnosed with [left flank pain, your history and physical exam are very reassuring *What to do: *Please continue to take your regular medications as directed. [ x] New medication prescriptions sent to your pharmacy: [[facility] ] [ ] New medication written as a paper prescription [ ] No new medications given *Please follow up with your primary care provider in 2-3 days, call for an appointment. Let them know you were seen in the Emergency Department and that we ask that you be seen in follow up. We will electronically transmit a record of today's note if your PCP is in our system *If you do not have a primary care provider please contact the [facility] Resource line at [phone]. They will ask some questions about your medical history and help get you set up with a doctor in the community. *Return to Emergency Department if you should have any new, worsening or concerning symptoms, such as [fever greater than 101 F, shaking chills, worsening pain, persistent vomiting or other bothersome symptoms] Prescriptions: New ciprofloxacin HCl [Cipro] 500 mg tablet 500 mg PO BID Qty: 14 0RF ketorolac 10 mg tablet 10 mg PO Q6H PRN (Reason: pain) Qty: 14 0RF cyclobenzaprine 10 mg tablet 10 mg PO TID PRN (Reason: muscle spasm) Qty: 14 0RF No Action topiramate [Topamax] 100 mg tablet 100 mg PO DAILY Qty: 270 0RF Rx Instructions: Must have labs prior to next refill. levothyroxine [Synthroid] 150 mcg tablet 150 mcg PO DAILY Qty: 90 0RF Rx Instructions: Must have labs prior to next refill. albuterol sulfate 90 mcg/actuation HFA aerosol inhaler 2 puff inhalation Q4-6H PRN (Reason: shortness of breath or wheezing) Qty: 8.5 1RF tramadol 50 mg tablet 50 mg PO TID PRN (Reason: pain) Qty: 30 0RF ondansetron HCl 4 mg tablet 4 mg PO Q8H PRN (Reason: nausea and vomiting) Qty: 30 0RF bupropion HCl [Wellbutrin XL] 300 mg tablet extended release 24 hr 300 mg PO QAM Qty: 90 3RF naproxen 500 mg tablet 500 mg PO BID Qty: 30 1RF Rx Instructions: After 7 days, change to as needed use only. Stop if GI upset. omeprazole 20 mg capsule,delayed release(DR/EC) 20 mg PO BID Qty: 60 1RF Rx Instructions: 20 minutes before 2 biggest meals of the day. hydrocodone-acetaminophen 5-325 mg tablet 1 tab PO Q4-6H PRN (Reason: pain) Qty: 10 0RF Referrals: Benson Jacob ARNP [Primary Care Provider] - Visit Report Forms: Patient Portal/API
[2022-10-13] MEDS: KETOROLAC 30 MG/ML VIAL 15 MG IV (22:07)
[2022-10-13 23:34] VITALS: BP 154/60; PULSE 62; RESP 16; O2SAT 100
[2022-10-14 00:04] VITALS: BP 135/74; PULSE 78; RESP 16; O2SAT 98
== END 2022-10-14 00:05 | disposition home or self-care (01) ==
PROVIDERS: Emergency Medicine; Emergency Provider Emergency Medicine; PCP Registered Nurse Diabetes Educator
DX: N39.0 Urinary tract infection, site not specified (principal); R10.9 Unspecified abdominal pain
CPT/HCPCS: 74022; 80053; 81003; 81015; 81025; 83690; 85025; 87077; 87086; 87186; 96374; 99283; 99284; J1885

== ENCOUNTER → 2022-12-15 12:20 | Outpatient (CLI) | payer OTHER, SELFPAY | PROVIDERS: PCP Registered Nurse Diabetes Educator; Visit Provider Nurse Practitioner Family | DX: R10.9 Unspecified abdominal pain (principal) | CPT/HCPCS: 87086 ==

== ENCOUNTER → 2023-06-01 16:42 | Outpatient (CLI) | payer OTHER, SELFPAY ==
--- NOTE | 2023-06-01 16:43 | DI.MRI.S_ITS ---
PROCEDURE: MR HIP RT WO CON INDICATIONS: acute pain of hip TECHNIQUE: Noncontrast coronal T1 spin echo and STIR through the bony pelvis. Coronal and axial T2 fast spin echo with fat saturation, sagittal T1 spin echo, and oblique axial T2 fast spin echo with fat saturation through the hip. COMPARISON: None. FINDINGS: Image quality: Excellent. Bones and joints: Bone marrow of the pelvic ring and proximal femurs show normal signal throughout. No intraosseous lesions or fractures. No avascular necrosis of the femoral heads. Mild degenerative disc disease and facet hypertrophy in the included lumbar spine. Tendons and ligaments: The gluteus medius and minimus tendons demonstrate mild tendinosis distally. The proximal iliotibial band appears intact. The iliopsoas tendon appears intact, without adjacent bursal fluid collections. The origin of the hamstring tendon is intact at the ischial tuberosity. Mildly increased T2-weighted signal intensity is seen adjacent to the origin of the direct head of the rectus femoris muscle origin at the anteroinferior iliac spine, suspicious for tendinosis or low-grade strain. No definite tendon tearing is seen. Labrum and cartilage: The acetabular labrum appears intact in the absence of intra-articular contrast. Mild focal subchondral cystic changes at the anterior acetabulum. Cartilage surface of the femoral head appears of normal thickness. There is normal morphology of the femoral head and the acetabulum. Soft tissues: Visualized muscles demonstrate normal bulk and internal signal. Quadratus femoris muscle demonstrates no internal edema to suggest ischiofemoral impingement. The proximal sciatic neurovascular bundle appears intact. The included portions of the pelvis demonstrate no acute abnormality. IMPRESSION: 1. Increased signal adjacent to the origin of the direct head of the rectus femoris muscle may be secondary to tendinosis or a low-grade muscle strain. No intratendinous fluid signal is seen to suggest tendon tearing. 2. Acetabular labrum is intact. No focal cartilage defect. Minimal subchondral cystic changes in the anterior acetabulum. 3. Mild distal gluteus medius and minimus tendinosis. 4. Mild degenerative changes in the included lumbar spine. Approved by: Carlos Tompkins M.D. on 06/02/2023 at 12:12
== END ==
PROVIDERS: PCP Registered Nurse Diabetes Educator; Referring Provider Family Medicine; Visit Provider Family Medicine
DX: M79.604 Pain in right leg (principal); M25.551 Pain in right hip; M47.816 Spondylosis without myelopathy or radiculopathy, lumbar region
CPT/HCPCS: 73721

== ENCOUNTER → 2023-10-26 15:39 | Outpatient (CLI) | payer OTHER, SELFPAY ==
--- NOTE | 2023-10-26 15:40 | DI.US.S_ITS ---
PROCEDURE: US ABDOMEN COMPLETE INDICATIONS: LUQ pain, bloating, firmness of abdomen TECHNIQUE: Real-time scanning was performed of the abdominal and retroperitoneal organs, with image documentation. COMPARISON: CR, XR ACUTE ABDOMEN SERIES, 10/13/2022, 22:21. FINDINGS: Liver: Liver is enlarged measuring 20 cm with increased echogenicity. Gallbladder: No stones. Wall thickness is normal measuring 1.8 mm. Biliary ducts: Intrahepatic bile ducts are non-dilated. Extrahepatic bile duct caliber measures 5.5 mm. Normal is 6-7 mm or less in diameter, or 10 mm or less post-cholecystectomy. Pancreas: Visualized portions of the pancreas are sonographically normal. Spleen: Spleen is normal in size and homogeneous in echotexture. Kidneys: Kidneys are normal in size and echotexture. Right kidney measures 12.4 cm long; left kidney measures 11.6 cm long. No hydronephrosis or nephrolithiasis. No solid masses. Aorta: Visualized aorta is normal in caliber at less than 3 cm. Iliacs: Proximal common iliac arteries are normal in caliber at less than 2.5 cm. IVC: Intrahepatic inferior vena cava is patent. Miscellaneous: No free abdominal fluid. IMPRESSION: Hepatomegaly with steatosis. Gallbladder is unremarkable. Dictated by: Manisha Foster M.D. on 10/26/2023 at 18:05 Approved by: Manisha Foster M.D. on 10/26/2023 at 18:06
== END ==
PROVIDERS: PCP Registered Nurse Diabetes Educator; Referring Provider Registered Nurse Diabetes Educator; Visit Provider Registered Nurse Diabetes Educator
DX: K76.0 Fatty (change of) liver, not elsewhere classified (principal); R10.12 Left upper quadrant pain; R14.0 Abdominal distension (gaseous); Z83.79 Family history of other diseases of the digestive system
CPT/HCPCS: 76700

== ENCOUNTER → 2023-11-10 10:58 | Outpatient (CLI) | payer OTHER, SELFPAY ==
--- NOTE | 2023-11-10 11:00 | DI.RAD.S_ITS ---
PROCEDURE: XR RIBS LT MIN 3V W CXR1V INDICATIONS: eval pain L rib area TECHNIQUE: 2 views of the left ribs were acquired, along with a single view chest. COMPARISON: None. FINDINGS: Surgical changes and devices: None. Bones and chest wall: No fractures or dislocations. No suspicious bony lesions. Overlying soft tissues appear unremarkable. Lungs and pleura: No pleural effusions or pneumothorax. Lungs appear clear. Mediastinum: Mediastinal contours appear normal. Heart size is normal. IMPRESSION: No displaced rib fracture or pneumothorax. Dictated by: Hernandez Carter M.D. on 11/10/2023 at 12:55 Approved by: Hernandez Carter M.D. on 11/10/2023 at 12:56
[2023-11-10 12:08] LABS: Hematocrit 43.2 % (36-46); Hemoglobin 14.9 g/dL (12.0-16.0); Mean Corpuscular HGB Conc 34.5 % (30-36); Mean Corpuscular Hemoglobin 29.4 PG (26-34); Mean Corpuscular Volume 85.3 fL (80-100); Platelet Count 288 X10^3/uL (150-400); Red Blood Cell Count 5.07 X10^6/uL (4.0-5.2); Red Cell Distribution Width 12.7 % (11.6-14.8); White Blood Cell Count 8.1 X10^3/uL (4.5-11.0)
[2023-11-10 12:40] LABS: Hemoglobin A1C% w Est Avg Glu 5.2 % (4.0-6.0)
[2023-11-10 12:50] LABS: Alanine Aminotransferase 33 IU/L (<35); Albumin 4.5 g/dL (3.5-5.0); Albumin Globulin Ratio 1.1 (1.0-2.8); Alkaline Phosphatase 107 U/L (38-126); Aspartate Aminotransferase 44 IU/L (14-36); Bilirubin Total 0.6 mg/dL (0.2-1.3); Blood Urea Nitrogen 17 mg/dL (7-17); Calcium 10.2 mg/dL (8.4-10.2); Carbon Dioxide 27 mmol/L (22-32); Chloride 102 mmol/L (98-107); Cholesterol 282 mg/dL (140-199); Estimated Glomerular Filt Rate > 60 mL/min (>60); Glucose 95 mg/dL (70-100); HDL Cholesterol 44 mg/dL (40-60); HEMOLYSIS 31 (0-50); LDL Cholesterol Calculated 208 mg/dL (<100); Lipase 65 U/L (23-300); Potassium 4.2 mmol/L (3.4-5.1); Sodium 138 mmol/L (137-145); Total Protein 8.5 g/dL (6.3-8.2); Triglycerides 152 mg/dL (35-150)
[2023-11-10 13:23] LABS: Ferritin 29 ng/mL (6-137)
[2023-11-10 18:45] LABS: Free T4, Direct Thyroxine 0.98 ng/dL (0.78-2.19)
[2023-11-10 18:59] LABS: Thyroid Stimulating Hormone 10.1 uIU/mL (0.47-4.68)
== END ==
PROVIDERS: PCP Registered Nurse Diabetes Educator; Referring Provider Registered Nurse Diabetes Educator; Visit Provider Registered Nurse Diabetes Educator
DX: R07.81 Pleurodynia (principal); E03.9 Hypothyroidism, unspecified; K76.0 Fatty (change of) liver, not elsewhere classified; Z00.00 Encounter for general adult medical examination without abnormal findings; R10.9 Unspecified abdominal pain
CPT/HCPCS: 36415; 71101; 80053; 80061; 82728; 83036; 83690; 84439; 84443; 85027

== ENCOUNTER 2023-12-29 11:51 | Emergency (ER) | payer OTHER, SELFPAY ==
[2023-12-29 11:55] VITALS: BP 178/95; PULSE 78; RESP 18; TEMP 36.6; O2SAT 98; BMI 38.9
--- NOTE | 2023-12-29 12:03 | DI.US.S_ITS ---
PROCEDURE: US PERIPH VENOUS LOW EXTREM RT INDICATIONS: right knee/groin pain hip arthroscopy 12/01 eval for DVT TECHNIQUE: Real-time imaging, as well as color and pulse Doppler interrogation, were performed of the lower extremity deep veins from the inguinal ligament to the popliteal fossa, with documentation of the visualized calf veins. COMPARISON: None. FINDINGS: The common femoral, femoral, popliteal, and the visualized calf veins are normally compressible, and free of intraluminal thrombus. Color and pulse Doppler demonstrate normal phasic intraluminal flow. There is normal augmentation response to distal compression maneuver. IMPRESSION: No findings of lower extremity deep venous thrombosis. Dictated by: Jose Cheng M.D. on 12/29/2023 at 12:37 Approved by: Jose Cheng M.D. on 12/29/2023 at 12:37
--- NOTE | 2023-12-29 12:04 | DI.RAD.S_ITS ---
PROCEDURE: XR KNEE RT 3V INDICATIONS: R knee pain /groin pain hip arthroscopy 12/01 TECHNIQUE: 3 views of the knee were acquired. COMPARISON: [facility], CR, XR KNEE LT 3V, 06/16/2022, 0:47. FINDINGS: Bones: No fractures or dislocations. No suspicious bony lesions. Mild degenerative changes are seen throughout. Enthesophytes can be seen along the superior and inferior aspect of the patella, as seen on the lateral view. Soft tissues: No joint effusion. No suspicious soft tissue calcifications. IMPRESSION: No acute bony abnormality or significant effusion. If it would be helpful for clinical management decision making, please consider a dedicated, scheduled knee MRI for further evaluation (assuming that there is no contraindication). Dictated by: Jerrell Gupta M.D. on 12/29/2023 at 12:33 Approved by: Jerrell Gupta M.D. on 12/29/2023 at 12:39
--- NOTE | 2023-12-29 12:06 | ED.EXTPRO ---
HPI - Extremity Problem <Apple Sage PA-C - Last Filed: 12/29/23 17:56> General Chief complaint: Extremity Problem,Nontraumatic Stated complaint: sent by PCP for possible blood clot Time Seen by Provider: 12/29/23 12:02 Source: patient Mode of arrival: Ambulatory History of Present Illness HPI Narrative: This is a 48-year-old female history of anxiety, PTSD, fibromyalgia, obesity, hypothyroid who presents with concern for right knee pain. She had hip arthroscopy on the right on the 01 of December for a torn labrum. She saw her PCP yesterday who advised her she could come to the ER for evaluation as it may take a few days to get an ultrasound for DVT rule out as an outpatient. Patient states that 2 days after her surgery she began having right knee pain that radiated down to her ankle but she feels on the inside of her knee the outside of her knee and underneath her patella. She says that her leg feels heavy and swollen on the right compared to her left she has talked to her orthopedic doctor who said this is likely postoperative related and should resolve, she started physical therapy and her next appointment is in 2 days' time. She has been taking [place] for pain usually only at night and also taking Tylenol she does state this does feel similar to when she had a blood clot in the same leg 30 years ago during . She acknowledges that she has fallen 3 times since her procedure but does not think that she damaged her injured her knee during any of these falls does not remember hearing any pops or feeling a specific sensation of injury at the time of falling. Her postop orthopedic appointment is in 12 days' time. She denies fevers, chills, redness or heat in the area of her procedure, redness or heat of her lower extremity, shortness of breath, chest pain or any other symptoms. Related Data Home Medications Medication Instructions Recorded Confirmed guanfacine 1 mg tablet 1 mg PO DAILY 10/27/22 12/28/23 dextroamphetamine-amphetamine 20 20 mg PO DAILY adhd 07/22/23 12/28/23 mg tablet (Adderall) acetaminophen 500 mg tablet 500 mg PO Q4H PRN pain 10/27/23 12/28/23 dextroamphetamine-amphetamine ER 1 cap PO QAM 10/27/23 12/28/23 10 mg 24hr capsule,extend release hydrocodone 5 mg-acetaminophen 325 1 tab PO Q6H PRN pain 12/28/23 12/28/23 mg tablet ondansetron HCl 4 mg tablet 4 mg PO Q8H PRN nausea 12/28/23 12/28/23 Previous Rx's Medication Instructions Recorded albuterol sulfate 90 mcg/actuation 2 puff inhalation Q4-6H PRN 09/09/23 aerosol inhaler shortness of breath or wheezing #8.5 grams fluticasone propionate 110 2 puff inhalation BID #12 grams 09/09/23 mcg/actuation HFA aerosol inhaler (Flovent HFA) levothyroxine 100 mcg tablet 100 mcg PO DAILY #60 tabs 12/28/23 lidocaine 5 % topical ointment 1 applic topical BID PRN pain 14 12/29/23 days #30 grams prednisone 20 mg tablet 40 mg (2 x 20 mg) PO DAILY 4 days 12/29/23 #8 tabs Allergies Allergy/AdvReac Type Severity Reaction Status Date / Time Sulfa (Sulfonamide Allergy Intermediate Vomiting Verified 10/27/23 13:50 Antibiotics) zolpidem [From Ambien] Allergy Intermediate Vomiting Verified 10/27/23 13:50 Penicillins Allergy Unknown Verified 10/27/23 13:50 aspirin Allergy Chest Pain Verified 12/29/23 11:55 phentermine AdvReac Severe Chest Pain Verified 10/27/23 13:50 Review of Systems <Apple Sage PA-C - Last Filed: 12/29/23 17:56> Review of Systems Narrative: See HPI Patient History <Apple Sage PA-C - Last Filed: 12/29/23 17:56> Medical History Acute pain of right lower extremity Acute right hip pain Complex posttraumatic stress disorder Lyme disease Anxiety PTSD (post-traumatic stress disorder) ADHD Mild persistent asthma Abdominal pain Asthma (~1984) PTSD (post-traumatic stress disorder) (~2004) Anxiety (~2007) Seizures (~1984) Migraines (~1992) Shoulder pain (~2014) Foot pain (~2008) Chronic back pain (~2004) Ankle pain (~2008) Anemia (~2018) Libido, decreased Obesity Hypothyroidism Fibromyalgia (~2007) Insomnia Depression Surgical History Anesthesia History of shoulder surgery History of ankle surgery History of section Family History Mother Diabetes mellitus Brother Accident Grandmother Diabetes mellitus Social History Smoking Status: Never smoker Smoking Status: Never smoker alcohol intake frequency: 0-2 drinks per day Substance Use Type: does not use Exam <Apple Sage PA-C - Last Filed: 12/29/23 17:56> Narrative Exam Narrative: GENERAL: 48 year old patient appears stated age. Well-developed patient, in mild distress. HEAD: Atraumatic. Normocephalic. EYES: Pupils equal round and reactive. Extraocular motions intact. No scleral icterus. No injection or drainage. ENT: Nose without bleeding, purulent drainage. Airway patent. NECK: Trachea midline. CARDIOVASCULAR: Regular rate and rhythm without murmurs, gallops, or rubs. RESPIRATORY: Clear to auscultation. Breath sounds equal bilaterally. No wheezes, rales, or rhonchi. GASTROINTESTINAL: Abdomen nondistended. EXTREMITIES: There is mild swelling noted about the right knee and superior calf just below the right knee, there is tenderness about the patella medial and lateral joint lines. There is mild tenderness with palpation of the calf and medial distal thigh. Range of motion is intact. Pedal pulses are intact, there is no erythema or heat noted. Mild tenderness in the popliteal fossa. No edema or joint tenderness. NEURO: AOx3. SKIN: No rash or erythema of visible areas Initial Vital Signs Initial Vital Signs: Vital Signs Temperature 98 F 12/29/23 11:55 Pulse Rate 78 12/29/23 11:55 Respiratory Rate 18 12/29/23 11:55 Blood Pressure 178/95 H 12/29/23 11:55 Pulse Oximetry 98 12/29/23 11:55 Oxygen Delivery Method Room Air 12/29/23 11:55 <Conchis Rodas MD - Last Filed: 12/29/23 18:10> Initial Vital Signs Initial Vital Signs: Vital Signs Temperature 98 F 12/29/23 11:55 Pulse Rate 78 12/29/23 11:55 Respiratory Rate 18 12/29/23 11:55 Blood Pressure 178/95 H 12/29/23 11:55 Pulse Oximetry 98 12/29/23 11:55 Oxygen Delivery Method Room Air 12/29/23 11:55 Course <Apple Sage PA-C - Last Filed: 12/29/23 17:56> Orders Ordered: ED Orders 12/29/23 12:03 US periph venous low extrem rt Stat 12/29/23 12:04 XR knee RT 3V Stat Discontinued Medications Ketorolac Tromethamine (Ketorolac 30 Mg/Ml Vial) 30 mg IM NOW ONE Stop: 12/29/23 13:53 Last Admin: 12/29/23 14:00 Dose: 30 mg Documented By: RB Vital Signs Vital signs: Vital Signs - 8 hr 12/29/23 11:55 12/29/23 13:04 12/29/23 14:06 Temperature 98 F Pulse Rate 78 63 73 Respiratory Rate 18 18 18 Blood Pressure 178/95 H 133/68 154/75 H Pulse Oximetry 98 98 97 Oxygen Delivery Method Room Air Room Air Room Air <Conchis Rodas MD - Last Filed: 12/29/23 18:10> Orders Ordered: ED Orders 12/29/23 12:03 US periph venous low extrem rt Stat 12/29/23 12:04 XR knee RT 3V Stat Discontinued Medications Ketorolac Tromethamine (Ketorolac 30 Mg/Ml Vial) 30 mg IM NOW ONE Stop: 12/29/23 13:53 Last Admin: 12/29/23 14:00 Dose: 30 mg Documented By: RB Vital Signs Vital signs: Vital Signs - 8 hr 12/29/23 11:55 12/29/23 13:04 12/29/23 14:06 Temperature 98 F Pulse Rate 78 63 73 Respiratory Rate 18 18 18 Blood Pressure 178/95 H 133/68 154/75 H Pulse Oximetry 98 98 97 Oxygen Delivery Method Room Air Room Air Room Air MDM - Extremity (Nontraumatic) <Apple Sage PA-C - Last Filed: 12/29/23 17:56> Differential Diagnosis Differential diagnosis: Likely cellulitis, lower extremity edema, deep vein thrombosis of lower extremity and other (Postop pain and swelling) Imaging Data US - DVT: My Impression: Agree with Radiology interpretation Radiologist's Impression: [address] [address] Ultrasound Report Signed Patient: Kosta Gold MR#: [id number] : 1975 Acct:[id number] Age/Sex: 48 / F Date of Service: 12/29/23 Loc: ED Accession Number: [id number] Procedure: US periph venous low extrem rt Ordering Provider: Apple Sage P.A-C PROCEDURE: US PERIPH VENOUS LOW EXTREM RT INDICATIONS: right knee/groin pain hip arthroscopy 12/01 eval for DVT TECHNIQUE: Real-time imaging, as well as color and pulse Doppler interrogation, were performed of the lower extremity deep veins from the inguinal ligament to the popliteal fossa, with documentation of the visualized calf veins. COMPARISON: None. FINDINGS: The common femoral, femoral, popliteal, and the visualized calf veins are normally compressible, and free of intraluminal thrombus. Color and pulse Doppler demonstrate normal phasic intraluminal flow. There is normal augmentation response to distal compression maneuver. IMPRESSION: No findings of lower extremity deep venous thrombosis. Dictated by: Jose Cheng M.D. on 12/29/2023 at 12:37 Approved by: Jose Cheng M.D. on 12/29/2023 at 12:37 Extremity x-ray #1: My Impression: Agree with radiology interpretation Radiologist's Impression: [address] [address] XRay Report Signed Patient: Kosta Gold MR#: [id number] : 1975 Acct:[id number] Age/Sex: 48 / F Date of Service: 12/29/23 Loc: ED Accession Number: [id number] Procedure: XR knee RT 3V Ordering Provider: Apple Sage P.A-C PROCEDURE: XR KNEE RT 3V INDICATIONS: R knee pain /groin pain hip arthroscopy 12/01 TECHNIQUE: 3 views of the knee were acquired. COMPARISON: [facility], NELLI, XR KNEE LT 3V, 06/16/2022, 0:47. FINDINGS: Bones: No fractures or dislocations. No suspicious bony lesions. Mild degenerative changes are seen throughout. Enthesophytes can be seen along the superior and inferior aspect of the patella, as seen on the lateral view. Soft tissues: No joint effusion. No suspicious soft tissue calcifications. IMPRESSION: No acute bony abnormality or significant effusion. If it would be helpful for clinical management decision making, please consider a dedicated, scheduled knee MRI for further evaluation (assuming that there is no contraindication). Dictated by: Jerrell Gupta M.D. on 12/29/2023 at 12:33 Approved by: Jerrell Gupta M.D. on 12/29/2023 at 12:39 [facility] Narrative Medical decision making narrative: This is a well-appearing 48-year-old female who presents with concern for persistent chronic pain since 2 days after her hip arthroscopy on the right on December 01 with pain beginning December 03. Saw her primary care provider yesterday who advised seeking an ultrasound evaluation possibly an emergency department due to more efficient evaluation. Patient does have history of DVT 30 years prior during . Exam today is possibly suspicious for this however she has no erythema or heat present, her pain and swelling do seem to be generalized and I suspect are related to her recent procedure, hip arthroscopy. I am less suspicious for an infectious process based on her history and exam today and labs are not obtained. An x-ray of the knee is obtained which shows enthesophytes superior and inferior to the patella, and ultrasound is also obtained for DVT evaluation which shows no evidence of DVT. Patient does have a postop visit scheduled in less than 2 weeks' time and is advised regarding compression stockings, monitoring for new or worsening symptoms, prescription today for topical lidocaine as well as steroid short course given concern for inflammation possibly exacerbating her symptoms and may be triggering pain at the site of her enthesophytes which has not previously been a problem. Patient is in understanding of the plan and will follow-up closely with primary care provider or reach out to her surgeon again if her pain is persisting despite these medications we will seek re-evaluation in the emergency department if she worsens. Return precautions provided, follow-up plan discussed, all questions answered. Discharge Plan Departure Patient Disposition: Home Clinical Impression: Acute pain of right knee, Post-op pain Activity Restrictions/Additional Instructions: *You have been diagnosed with [right knee pain, postop pain] *What to do: *Please continue to take your regular medications as directed. [ 2] New medication prescriptions sent to your pharmacy: [Prednisone, lidocaine ointment] [ ] New medication written as a paper prescription [ ] No new medications given *Please follow up with your primary care provider in 2-3 days, call for an appointment. Let them know you were seen in the Emergency Department and that we ask that you be seen in follow up. We will electronically transmit a record of today's note if your PCP is in our system. I am sorry that you are having this persistent pain since a few days after your procedure earlier this month. We did an x-ray and an ultrasound today in the emergency department. We did not find any evidence of a deep vein thrombosis, and your x-ray also looked okay. We did note there are enthesophytes present (bony calcifications) in your ligament above and below your kneecap; and on your exam you are somewhat swollen around your right knee as compared to her left, I suspect that your pain is likely still related to your procedure and the swelling that you continue to have. I am glad that you have ordered compression stockings I recommend you try these as well as continuing elevation of your right leg when you can. I did prescribe anti-inflammatory short course, of prednisone. As well as topical pain reliever, lidocaine ointment. In addition I recommend that you consider taking Advil or ibuprofen during the day instead of just taking the Aleve and [place] at night before bed. I am hopeful that if you take these more consistently it will help more with your pain as well as the other measures I have prescribed today. I would encourage you to talk again with your surgeon soon; certainly if your symptoms are not improving over the next few days as her postop appointment is not for another 12 days or so. *If you do not have a primary care provider please contact the [facility] Resource line at [phone]. They will ask some questions about your medical history and help get you set up with a doctor in the community. *Return to Emergency Department if you should have any new, worsening or concerning symptoms, such as [fever greater than 101 F, shaking chills, worsening pain, persistent vomiting or other bothersome symptoms] Prescriptions: New prednisone 20 mg tablet 40 mg PO DAILY 4 Days Qty: 8 0RF lidocaine 5 % ointment 1 applic topical BID PRN (Reason: pain) 14 Days Qty: 30 1RF No Action albuterol sulfate 90 mcg/actuation HFA aerosol inhaler 2 puff inhalation Q4-6H PRN (Reason: shortness of breath or wheezing) Qty: 8.5 1RF fluticasone propionate [Flovent HFA] 110 mcg/actuation HFA aerosol inhaler 2 puff inhalation BID Qty: 12 1RF Rx Instructions: rinse mouth and throat after use guanfacine 1 mg tablet 1 mg PO DAILY Patient Comments: TAKE 1 TABLET BY MOUTH EVERY EVENING dextroamphetamine-amphetamine [Adderall] 20 mg tablet 20 mg PO DAILY hydrocodone-acetaminophen 5-325 mg tablet 1 tab PO Q6H PRN (Reason: pain) ondansetron HCl 4 mg tablet 4 mg PO Q8H PRN (Reason: nausea) levothyroxine 100 mcg tablet 100 mcg PO DAILY Qty: 60 0RF acetaminophen 500 mg tablet 500 mg PO Q4H PRN (Reason: pain) dextroamphetamine-amphetamine 10 mg capsule,extended release 24hr 1 cap PO QAM Referrals: Benson Jacob ARNP [Primary Care Provider] - Stand Alone Forms: Patient Portal/API ED Sign-out <Conchis Rodas MD - Last Filed: 12/29/23 18:10> Cosign ED Attending Cosignature Attestation: I did not see this patient. I was available all times for consultation.
[2023-12-29 13:04] VITALS: BP 133/68; PULSE 63; RESP 18; O2SAT 98
[2023-12-29] MEDS: KETOROLAC 30 MG/ML VIAL IM (14:00)
[2023-12-29 14:06] VITALS: BP 154/75; PULSE 73; RESP 18; O2SAT 97
== END 2023-12-29 14:10 | disposition home or self-care (01) ==
PROVIDERS: Emergency Provider Student in an Organized Health Care Education/Training Program; Family Provider Registered Nurse Diabetes Educator; PCP Registered Nurse Diabetes Educator
DX: M25.561 Pain in right knee (principal); G89.18 Other acute postprocedural pain
CPT/HCPCS: 73562; 93971; 96372; 99283; 99284; J1885

== ENCOUNTER 2024-01-05 14:30 | Outpatient (RCR) | payer OTHER, SELFPAY ==
--- NOTE | 2023-12-23 17:49 | PT.OIE ---
Current Diagnoses Pain in right hip (12/23/23) Stiffness of right hip, not elsewhere classified (12/23/23) Other abnormalities of gait and mobility (12/23/23) Other sprain of right hip, subsequent encounter (12/23/23) Past Medical History (Last Reviewed 10/31/23 @ 17:27 by CATY Delgado) Abdominal pain Acute pain of right lower extremity Acute right hip pain ADHD Anemia (~2018) Ankle pain (~2008) Anxiety (~2007) Anxiety Asthma (~1984) Chronic back pain (~2004) Complex posttraumatic stress disorder Depression Fibromyalgia (~2007) Foot pain (~2008) Hypothyroidism Insomnia Libido, decreased Lyme disease Migraines (~1992) Mild persistent asthma Obesity PTSD (post-traumatic stress disorder) (~2004) PTSD (post-traumatic stress disorder) Seizures (~1984) Shoulder pain (~2014) Past Surgical History (Last Reviewed 10/31/23 @ 17:27 by CATY Delgado) Anesthesia History of ankle surgery History of section History of shoulder surgery Visit Care Team Role Provider Type CATY Delgado Family Provider Advanced Hearing Aid Assistant Primary Care Provider Specialty: Medical Address: [address] [place] [address], [facility] Email: [email or web address] Juan J Benton MD Attending Provider Non-Staff Referring Provider Specialty: Orthopedic Surgery Address: [address] [place] [address], [facility] Email: Physical Therapy Initial Evaluation PT-OP-A Visit Information Start: 12/23/23 16:12 Freq: Status: Active Protocol: Document 12/23/23 12:00 DCW (Rec: 12/23/23 16:33 [facility] [id number]) Out-Patient Physical Therapy Visit Information Visit Information Visit Type Initial Evaluation Visit Start Time 12:00 Visit Stop Time 12:45 Visit Number 1 Number of PEDIATRIC ALLERGIST Visits 0 Evaluation Information Evaluation Date 12/23/23 PT-OP-B Current Condition Start: 12/23/23 16:12 Freq: Status: Active Protocol: Document 12/23/23 12:00 DCW (Rec: 12/23/23 16:33 [facility] [id number]) Current Condition History of Current Condition Onset Date 05/24/23 injury, 12/01/23 surgery Current Complaints Right hip labral repair History of Current Condition Pt is a 48 year old female presenting to skilled therapy three weeks s/p hip arthroscopy secondary to pincer Femoroacetabular impingement/labral tear. Pt reports that on 05/24/23, she was performing squat thrusts at the gym, heard a pop, and had severe right hip pain. Ended up going home to rest, returned to the gym the next day, and was still in so much pain she could not perform her usual activities. In July, was able to get in to an ortho, had an MRI without contrast, which didn't show anything, so she once again attempted to try to return to usual activities with no luck. In October, received new x-rays and an MRI with contrast, her labral tear was found, and she underwent surgical intervention Dec 01, 2023. Was told by surgeon at two week follow-up to lose the crutches, and she has been trying to ambulate without an assistive device, but she continues to experience fairly severe pain and an angalgic gait. Ended up falling a few days ago trying to go to the rest room, so has returned to using one forearm crutch on her left side. Has been trying to use her recumbent stationary bicycle at home, is only able to tolerate for 5 minutes. [place] close to her, so she attempted to step backwards, which caused significant increase in anterior right hip pain. Treatment Goals Patient/Caregiver Goals Pt's stated goals are to return to the gm, ambulate without pain, and to get back to doing the majority of the housework (My 18 year old son is doing it now, and I appreciate it, but it's all wrong.) PT-OP-C Subjective Start: 12/23/23 16:12 Freq: Status: Active Protocol: Document 12/23/23 12:00 DCW (Rec: 12/23/23 16:33 [facility] [id number]) OP-PT Subjective Patient Comments Patient Comments I've had quite a few different surgeries over the years, and I've never gone through this type of pain. Patient Questionnaires Lower Extremity Functional Scale LEFS Score 2380 = 28.75% LEFS Impairment 60 to 79% Impaired (Score 17- 31) PT-OP-G Mobility & Gait Start: 12/23/23 16:36 Freq: Status: Active Protocol: Document 12/23/23 12:00 DCW (Rec: 12/23/23 16:39 DCW [id number]) OP Gait Assessment Comments Gait Comments Trial of ambulation both using unilateral (L) forearm crutch and without assistive device. With crutch, pt ambulates with a shortened left step- length and a step-to gait pattern, left lateral trunk shift. Without an AD, pt ambulates with an improved step-through gait and improved left swing phase, however ambulates with a severe antalgic gait and right trendelenburg pattern. PT-OP-K Range of Motion Start: 12/23/23 16:12 Freq: Status: Active Protocol: Document 12/23/23 12:00 DCW (Rec: 12/23/23 16:36 DCW [id number]) Hip Goniometric Range of Motion Hip Right Passive Hip ROM WFL No Testing Position Supine Flexion w/Knee Flexed 40 Abduction 10 Right Active Hip ROM WFL No Testing Position Supine Flexion w/Knee Flexed 45 Abduction 10 Internal Rotation 2 External Rotation 10 Left Active Hip ROM WFL Yes Testing Position Supine Flexion w/Knee Flexed 105 Abduction 50 Internal Rotation 25 External Rotation 50 PT-OP-M Strength Start: 12/23/23 16:12 Freq: Status: Active Protocol: Document 12/23/23 12:00 DCW (Rec: 12/23/23 16:36 DCW [id number]) Hip Strength Hip Manual Muscle Testing Right Flexion (L2) 2 Poor Abduction 2 Poor Comments MMT based on pt's movement of joint against gravity during functional mobility PT-OP-T Assessment and Plan Start: 12/23/23 16:12 Freq: Status: Active Protocol: Document 12/23/23 12:00 DCW (Rec: 12/23/23 17:49 DCW [id number]) Physical Therapy Assessment Rehab Potential Rehabilitation Potential Good Evaluation Complexity Number of Personal Factors/Comorbidities 3 or More Number of Body Systems Impaired 4 or More Clinical Presentation at Evaluation Unstable Impairments Impairments Activity Tolerance,Balance, Functional Activities, Functional Mobility,Gait,Pain, Posture,ROM,Soft Tissue Mobility,Strength,Tone Goals Three Impairment Pt ambulates with severe antalgic gait and right trendelenburg Jail Goal (LTG) Pt to ambulate 500 feet without an assistive device using proper gait technique LTG Duration 03/22/24 Two Impairment Severe limitation of right hip AROM (flexion 45?, abduction 10?) Collections Curator Goal (LTG) AROM of right hip to increase to 100? flexion and 35? abduction to improve functional mobility in accordance with post-op protocol LTG Duration 03/22/24 One Impairment Pt does not have an appropriate home exercise program Short Term Goal (STG) Pt to be independent and compliant with an appropriate HEP STG Duration 01/21/24 Assessment Summary Assessment Pt presents with signs and symptoms as expected three weeks s/p surgical intervention secondary to pincer Femoroacetabular impingement/labral tear. Significant limitations to range of motion and strength in right hip. Pt should benefit from skilled therapy focusing on improving functional mobility, gait, balance, hip ROM, and strength in accordance with post-op protocol. Physical Therapy Plan Frequency and Duration Frequency of Treatment 2x/Week Plan of Care Start Date 12/23/23 Plan of Care End Date 03/22/24 Therapeutic Interventions Therapeutic Interventions Balance Training,Gait Training ,Home Exercise Program,Joint Mobilizations,Manual Therapy, Neuromuscular Re-education, Patient/Caregiver Education, Self-Care/Home Management,Soft Tissue Mobilization, Therapeutic Activities, Therapeutic Exercises Modalities Cold Pack/Ice Massage,Electric Stimulation,Hot Packs, Ultrasound Next Visit Focus/Plan Next Note Type Treatment Note Next Visit Plan Hip mobility, bicycle, strengthening, ROM
--- NOTE | 2023-12-23 17:50 | PT.OPPOC ---
Physical, Occupational & Speech Therapy At [facility] Current Diagnoses Pain in right hip (12/23/23) Stiffness of right hip, not elsewhere classified (12/23/23) Other abnormalities of gait and mobility (12/23/23) Other sprain of right hip, subsequent encounter (12/23/23) Visit Care Team Role Provider Type CATY Delgado Family Provider Advanced Motor Builder Assembler Primary Care Provider Specialty: Medical Address: [address] [place] [address], [id number] Email: [email or web address] Juan J Benton MD Attending Provider Non-Staff Referring Provider Specialty: Orthopedic Surgery Address: [address] [place] [address], [id number] Email: Plan Of Care PT-OP-T Assessment and Plan Start: 12/23/23 16:12 Freq: Status: Active Protocol: Document 12/23/23 12:00 DCW (Rec: 12/23/23 17:49 DCW [id number]) Physical Therapy Assessment Rehab Potential Rehabilitation Potential Good Evaluation Complexity Number of Personal Factors/Comorbidities 3 or More Number of Body Systems Impaired 4 or More Clinical Presentation at Evaluation Unstable Impairments Impairments Activity Tolerance,Balance, Functional Activities, Functional Mobility,Gait,Pain, Posture,ROM,Soft Tissue Mobility,Strength,Tone Goals Three Impairment Pt ambulates with severe antalgic gait and right trendelenburg Half-Way Goal (LTG) Pt to ambulate 500 feet without an assistive device using proper gait technique LTG Duration 03/22/24 Two Impairment Severe limitation of right hip AROM (flexion 45?, abduction 10?) Half-Way Goal (LTG) AROM of right hip to increase to 100? flexion and 35? abduction to improve functional mobility in accordance with post-op protocol LTG Duration 03/22/24 One Impairment Pt does not have an appropriate home exercise program Short Term Goal (STG) Pt to be independent and compliant with an appropriate HEP STG Duration 01/21/24 Assessment Summary Assessment Pt presents with signs and symptoms as expected three weeks s/p surgical intervention secondary to pincer Femoroacetabular impingement/labral tear. Significant limitations to range of motion and strength in right hip. Pt should benefit from skilled therapy focusing on improving functional mobility, gait, balance, hip ROM, and strength in accordance with post-op protocol. Physical Therapy Plan Frequency and Duration Frequency of Treatment 2x/Week Plan of Care Start Date 12/23/23 Plan of Care End Date 03/22/24 Therapeutic Interventions Therapeutic Interventions Balance Training,Gait Training ,Home Exercise Program,Joint Mobilizations,Manual Therapy, Neuromuscular Re-education, Patient/Caregiver Education, Self-Care/Home Management,Soft Tissue Mobilization, Therapeutic Activities, Therapeutic Exercises Modalities Cold Pack/Ice Massage,Electric Stimulation,Hot Packs, Ultrasound Next Visit Focus/Plan Next Note Type Treatment Note Next Visit Plan Hip mobility, bicycle, strengthening, ROM Plan of Care Dates Plan of Care Start Date 12/23/23 Plan of Care End Date 03/22/24 Electronically Signed by: Delfino Trinidad, PT 12/23/23 1984 If you are in agreement with this Plan of Care, please return a signed and dated copy. I have reviewed this Plan of Care and certify that the skilled therapy services above are required to meet the patient?s needs. Physician Signature Date Printed Name and Credentials Clinical Instructor Signature Printed Name and Credentials
--- NOTE | 2024-01-05 15:15 | PT.OTN ---
Current Diagnoses Pain in right hip (01/05/24) Stiffness of right hip, not elsewhere classified (01/05/24) Other abnormalities of gait and mobility (01/05/24) Other sprain of right hip, subsequent encounter (01/05/24) Physical Therapy Treatment Note PT-OP-A Visit Information Start: 12/23/23 16:12 Freq: Status: Active Protocol: Document 01/05/24 14:30 DCW (Rec: 01/05/24 15:15 DCW [id number]) Out-Patient Physical Therapy Visit Information Visit Information Visit Type Treatment Note Visit Start Time 14:30 Visit Stop Time 15:15 Visit Number 2 Number of ENERGY SCHEDULER Visits 0 Evaluation Information Evaluation Date 12/23/23 PT-OP-B Current Condition Start: 12/23/23 16:12 Freq: Status: Active Protocol: Document 12/23/23 12:00 DCW (Rec: 12/23/23 16:33 DCW [id number]) Current Condition History of Current Condition Onset Date 05/24/23 injury, 12/01/23 surgery Current Complaints Right hip labral repair History of Current Condition Pt is a 48 year old female presenting to skilled therapy three weeks s/p hip arthroscopy secondary to pincer Femoroacetabular impingement/labral tear. Pt reports that on 05/24/23, she was performing squat thrusts at the gym, heard a pop, and had severe right hip pain. Ended up going home to rest, returned to the gym the next day, and was still in so much pain she could not perform her usual activities. In July, was able to get in to an ortho, had an MRI without contrast, which didn't show anything, so she once again attempted to try to return to usual activities with no luck. In October, received new x-rays and an MRI with contrast, her labral tear was found, and she underwent surgical intervention Dec 01, 2023. Was told by surgeon at two week follow-up to lose the crutches, and she has been trying to ambulate without an assistive device, but she continues to experience fairly severe pain and an angalgic gait. Ended up falling a few days ago trying to go to the rest room, so has returned to using one forearm crutch on her left side. Has been trying to use her recumbent stationary bicycle at home, is only able to tolerate for 5 minutes. [place] close to her, so she attempted to step backwards, which caused significant increase in anterior right hip pain. Treatment Goals Patient/Caregiver Goals Pt's stated goals are to return to the , ambulate without pain, and to get back to doing the majority of the housework (My 18 year old son is doing it now, and I appreciate it, but it's all wrong.) PT-OP-C Subjective Start: 12/23/23 16:12 Freq: Status: Active Protocol: Document 01/05/24 14:30 DCW (Rec: 01/05/24 15:15 DCW [id number]) OP-PT Subjective Patient Comments Patient Comments Pt notes that she will occasionally be walking and her hip feels so tight it feels like it's pulling me backward. PT-OP-G Mobility & Gait Start: 12/23/23 16:36 Freq: Status: Active Protocol: Document 12/23/23 12:00 DCW (Rec: 12/23/23 16:39 DCW [id number]) OP Gait Assessment Comments Gait Comments Trial of ambulation both using unilateral (L) forearm crutch and without assistive device. With crutch, pt ambulates with a shortened left step- length and a step-to gait pattern, left lateral trunk shift. Without an AD, pt ambulates with an improved step-through gait and improved left swing phase, however ambulates with a severe antalgic gait and right trendelenburg pattern. PT-OP-K Range of Motion Start: 12/23/23 16:12 Freq: Status: Active Protocol: Document 12/23/23 12:00 DCW (Rec: 12/23/23 16:36 DCW [id number]) Hip Goniometric Range of Motion Hip Right Passive Hip ROM WFL No Testing Position Supine Flexion w/Knee Flexed 40 Abduction 10 Right Active Hip ROM WFL No Testing Position Supine Flexion w/Knee Flexed 45 Abduction 10 Internal Rotation 2 External Rotation 10 Left Active Hip ROM WFL Yes Testing Position Supine Flexion w/Knee Flexed 105 Abduction 50 Internal Rotation 25 External Rotation 50 PT-OP-M Strength Start: 12/23/23 16:12 Freq: Status: Active Protocol: Document 12/23/23 12:00 DCW (Rec: 12/23/23 16:36 DCW [id number]) Hip Strength Hip Manual Muscle Testing Right Flexion (L2) 2 Poor Abduction 2 Poor Comments MMT based on pt's movement of joint against gravity during functional mobility PT-OP-Q Treatments Start: 12/23/23 16:12 Freq: Status: Active Protocol: Document 01/05/24 14:30 DCW (Rec: 01/05/24 15:15 DCW [id number]) Cardio Equipment Bicycle (Upright) Duration (Minutes) 5 Resistance 0 Therapeutic Exercises Supine Exercises Circumduction Supine Exercise Name Passive Circumduction Standing Exercises Stool Rotations Standing Exercise Name Stool Rotations Side right Comments 90? knee flexion on stool Hip AROM Standing Exercise Name AROM Hip abduction, extension Other Exercises Lunge Other Exercise Name Mini lunge Comments <70? hip flexion Squats Other Exercise Name Mini wall squats Comments <70? hip flexion Weight shift Other Exercise Name Staggered stance - Fwd/Bkwd, Lateral weight shift Equipment Used // bars PT-OP-T Assessment and Plan Start: 12/23/23 16:12 Freq: Status: Active Protocol: Document 01/05/24 14:30 DCW (Rec: 01/05/24 15:15 DCW [id number]) Physical Therapy Assessment Impairments Impairments Activity Tolerance,Balance, Functional Activities, Functional Mobility,Gait,Pain, Posture,ROM,Soft Tissue Mobility,Strength,Tone Goals Three Impairment Pt ambulates with severe antalgic gait and right trendelenburg Jail Goal (LTG) Pt to ambulate 500 feet without an assistive device using proper gait technique LTG Duration 03/22/24 Two Impairment Severe limitation of right hip AROM (flexion 45?, abduction 10?) Physical Director Goal (LTG) AROM of right hip to increase to 100? flexion and 35? abduction to improve functional mobility in accordance with post-op protocol LTG Duration 03/22/24 One Impairment Pt does not have an appropriate home exercise program Short Term Goal (STG) Pt to be independent and compliant with an appropriate HEP STG Duration 01/21/24 Assessment Summary Assessment Pt exhibited fair response to activity today, able to tolerate all TherEx during today's session, but clearly had a pain response. Reviewed supine PROM circumduction, pt has been doing well with . Added standing AROM hip abduction/extension to HEP , pt working on setting up home stationary bike. Physical Therapy Plan Frequency and Duration Frequency of Treatment 2x/Week Plan of Care Start Date 12/23/23 Plan of Care End Date 03/22/24 Therapeutic Interventions Therapeutic Interventions Balance Training,Gait Training ,Home Exercise Program,Joint Mobilizations,Manual Therapy, Neuromuscular Re-education, Patient/Caregiver Education, Self-Care/Home Management,Soft Tissue Mobilization, Therapeutic Activities, Therapeutic Exercises Modalities Cold Pack/Ice Massage,Electric Stimulation,Hot Packs, Ultrasound Next Visit Focus/Plan Next Note Type Treatment Note Next Visit Plan Hip mobility, bicycle, strengthening, ROM
--- NOTE | 2024-01-28 13:16 | PT-OP ANOTE ---
S/w Kosta at 1312 regarding missed appt today; she apologizes and advises she called about having a flat tire and possibly missing appt, and she is still at [facility] so unable to make appt. Next PT appt confirmed Tuesday 01/30 at 1645. Documentation Clerk confirms pt had called earlier to advise may miss appointment due to flat tire.
--- NOTE | 2024-08-31 17:49 | PT.OPDS ---
Current Diagnoses Pain in right hip (01/05/24) Stiffness of right hip, not elsewhere classified (01/05/24) Other abnormalities of gait and mobility (01/05/24) Other sprain of right hip, subsequent encounter (01/05/24) Visit Care Team Role Provider Type CATY Delgado Family Provider [employer] Primary Care Provider Specialty: Medical Address: [address] [place] [address], [address] Email: [email or web address] Juan J Benton MD Attending Provider Non-Staff Referring Provider Specialty: Orthopedic Surgery Address: [address] [place] [address], [id number] Email: Visit Number Visit Number 2 Discharge Summary PT-OP-B Current Condition Start: 12/23/23 16:12 Freq: Status: Active Protocol: Document 12/23/23 12:00 DCW (Rec: 12/23/23 16:33 DCW [id number]) Current Condition History of Current Condition Onset Date 05/24/23 injury, 12/01/23 surgery Current Complaints Right hip labral repair History of Current Condition Pt is a 48 year old female presenting to skilled therapy three weeks s/p hip arthroscopy secondary to pincer Femoroacetabular impingement/labral tear. Pt reports that on 05/24/23, she was performing squat thrusts at the gym, heard a pop, and had severe right hip pain. Ended up going home to rest, returned to the gym the next day, and was still in so much pain she could not perform her usual activities. In July, was able to get in to an ortho, had an MRI without contrast, which didn't show anything, so she once again attempted to try to return to usual activities with no luck. In October, received new x-rays and an MRI with contrast, her labral tear was found, and she underwent surgical intervention Dec 01, 2023. Was told by surgeon at two week follow-up to lose the crutches, and she has been trying to ambulate without an assistive device, but she continues to experience fairly severe pain and an angalgic gait. Ended up falling a few days ago trying to go to the rest room, so has returned to using one forearm crutch on her left side. Has been trying to use her recumbent stationary bicycle at home, is only able to tolerate for 5 minutes. [place] close to her, so she attempted to step backwards, which caused significant increase in anterior right hip pain. Treatment Goals Patient/Caregiver Goals Pt's stated goals are to return to the , ambulate without pain, and to get back to doing the majority of the housework (My 18 year old son is doing it now, and I appreciate it, but it's all wrong.) PT-OP-C Subjective Start: 12/23/23 16:12 Freq: Status: Active Protocol: Document 01/05/24 14:30 DCW (Rec: 01/05/24 15:15 DCW [id number]) OP-PT Subjective Patient Comments Patient Comments Pt notes that she will occasionally be walking and her hip feels so tight it feels like it's pulling me backward. PT-OP-G Mobility & Gait Start: 12/23/23 16:36 Freq: Status: Active Protocol: Document 12/23/23 12:00 DCW (Rec: 12/23/23 16:39 DCW [id number]) OP Gait Assessment Comments Gait Comments Trial of ambulation both using unilateral (L) forearm crutch and without assistive device. With crutch, pt ambulates with a shortened left step- length and a step-to gait pattern, left lateral trunk shift. Without an AD, pt ambulates with an improved step-through gait and improved left swing phase, however ambulates with a severe antalgic gait and right trendelenburg pattern. PT-OP-K Range of Motion Start: 12/23/23 16:12 Freq: Status: Active Protocol: Document 12/23/23 12:00 DCW (Rec: 12/23/23 16:36 DCW [id number]) Hip Goniometric Range of Motion Hip Right Passive Hip ROM WFL No Testing Position Supine Flexion w/Knee Flexed 40 Abduction 10 Right Active Hip ROM WFL No Testing Position Supine Flexion w/Knee Flexed 45 Abduction 10 Internal Rotation 2 External Rotation 10 Left Active Hip ROM WFL Yes Testing Position Supine Flexion w/Knee Flexed 105 Abduction 50 Internal Rotation 25 External Rotation 50 PT-OP-M Strength Start: 12/23/23 16:12 Freq: Status: Active Protocol: Document 12/23/23 12:00 DCW (Rec: 12/23/23 16:36 DCW [id number]) Hip Strength Hip Manual Muscle Testing Right Flexion (L2) 2 Poor Abduction 2 Poor Comments MMT based on pt's movement of joint against gravity during functional mobility PT-OP-T Assessment and Plan Start: 12/23/23 16:12 Freq: Status: Active Protocol: Document 08/31/24 17:49 DCW (Rec: 08/31/24 17:49 DCW [id number]) Physical Therapy Assessment Assessment Summary Assessment [id number] multiple cancellations and no shows, pt has not been seen in more than seven months. Plan of care has . Pt will require a new referral in order to return to PT in the future. Pt will be discharged from skilled therapy at this time. Physical Therapy Plan Discharge Physical Therapy Discharge Reasons No Longer Attending PT
== END 2024-09-06 10:37 | disposition home or self-care (01) ==
LOC: PHYS 14:30
PROVIDERS: Family Provider Registered Nurse Diabetes Educator; PCP Registered Nurse Diabetes Educator; Referring Provider Orthopaedic Surgery; Visit Provider Orthopaedic Surgery
DX: M25.551 Pain in right hip (principal); M25.651 Stiffness of right hip, not elsewhere classified; R26.89 Other abnormalities of gait and mobility; S73.191D Other sprain of right hip, subsequent encounter
CPT/HCPCS: 97110; 97163

== ENCOUNTER → 2024-01-26 13:05 | Outpatient (CLI) | payer OTHER, SELFPAY ==
[2024-01-26 15:05] LABS: TSH w/ Reflex to FT4 3.13 uIU/mL (0.47-4.68)
== END ==
LOC: LAB 13:05
PROVIDERS: Family Provider Registered Nurse Diabetes Educator; PCP Registered Nurse Diabetes Educator; Referring Provider Registered Nurse Diabetes Educator; Visit Provider Registered Nurse Diabetes Educator
DX: E03.9 Hypothyroidism, unspecified (principal)
CPT/HCPCS: 36415; 84443

== ENCOUNTER 2024-03-08 07:15 | Emergency (ER) | payer OTHER, SELFPAY ==
[2024-03-08] VITALS (18 sets, daily range): BP systolic 119–192; BP diastolic 65–86; PULSE 61–82; RESP 13–26; O2SAT 96–98; BMI 40.2
--- NOTE | 2024-03-08 07:17 | DI.RAD.S_ITS ---
PROCEDURE: XR CHEST 1V INDICATIONS: Chest pain TECHNIQUE: One view of the chest was acquired. COMPARISON: None. FINDINGS: Surgical changes and devices: None. Lungs and pleura: Lungs are clear. No pleural effusions or pneumothorax. Mediastinum: Mediastinal contours appear normal. Heart size is normal. Bones and chest wall: No suspicious bony lesions. Overlying soft tissues appear unremarkable. IMPRESSION: No acute cardiopulmonary abnormality is seen. Dictated by: Robbie Song M.D. on 03/08/2024 at 8:00 Approved by: Robbie Song M.D. on 03/08/2024 at 8:04
--- NOTE | 2024-03-08 07:23 | ED_ITS ---
HPI - General Adult General Chief complaint: Chest Pain Stated complaint: chest pains Time Seen by Provider: 03/08/24 07:17 Source: patient Mode of arrival: Ambulatory Limitations: no limitations History of Present Illness HPI narrative: Patient is a 48-year-old female who arrives in the emergency department for left-sided chest discomfort that she states woke her from sleep approximately 4 hours ago. She does state that is on the left side of her chest. It does get worse when she takes a deep breath. Not worse with palpation or movement. No prior heart issues. Does have history of asthma/bronchitis for what she has an albuterol inhaler. She did not use this prior to arrival. No nausea or vomiting. No lower extremity swelling. No previous blood clot. Has not tried anything for the symptoms prior to arrival Related Data Home Medications Medication Instructions Recorded Confirmed acetaminophen 500 mg tablet 500 mg PO Q4H PRN pain 10/27/23 03/06/24 Previous Rx's Medication Instructions Recorded albuterol sulfate 90 mcg/actuation 2 puff inhalation Q4-6H PRN 09/09/23 aerosol inhaler shortness of breath or wheezing #8.5 grams fluticasone propionate 110 2 puff inhalation BID #12 grams 09/09/23 mcg/actuation HFA aerosol inhaler (Flovent HFA) levothyroxine 100 mcg tablet 100 mcg PO DAILY #90 tabs 01/27/24 semaglutide (weight loss) 0.25 0.25 mg (0.5 mL) SUBCUT QWEEK #2 mL 03/02/24 mg/0.5 mL subcutaneous pen injector semaglutide (weight loss) 0.5 0.5 mg (0.5 mL) SUBCUT QWEEK #2 mL 03/06/24 mg/0.5 mL subcutaneous pen injector (Wegovy) semaglutide (weight loss) 1 mg/0.5 1 mg (0.5 mL) SUBCUT Q7D #2 mL 03/06/24 mL subcutaneous pen injector (Wegovy) semaglutide (weight loss) 1.7 1.7 mg (0.75 mL) SUBCUT QWEEK #3 mL 03/06/24 mg/0.75 mL subcutaneous pen injector (Wegovy) Allergies Allergy/AdvReac Type Severity Reaction Status Date / Time Penicillins Allergy Unknown Verified 03/06/24 09:34 phentermine AdvReac Severe Chest Pain Verified 03/06/24 09:34 bupropion [From Contrave] AdvReac Intermediate Migraine Verified 03/08/24 09:00 naltrexone [From Contrave] AdvReac Intermediate Migraine Verified 03/08/24 09:00 Sulfa (Sulfonamide AdvReac Intermediate Vomiting Verified 03/08/24 09:00 Antibiotics) zolpidem [From Ambien] AdvReac Intermediate Vomiting Verified 03/08/24 09:00 aspirin AdvReac Chest Pain Verified 03/08/24 09:00 Review of Systems Constitutional Constitutional: Reports system reviewed and no additional complaints, except as documented Cardiovascular Cardiovascular: Reports system reviewed and no additional complaints, except as documented Respiratory Respiratory: Reports system reviewed and no additional complaints, except as documented Gastrointestinal Gastrointestinal: Reports system reviewed and no additional complaints, except as documented Integumentary/Breasts Skin/Breast: Reports system reviewed and no additional complaints, except as documented Hematologic/Lymphatic On Anticoagulants: No Patient History Medical History Acute pain of right lower extremity Acute right hip pain Complex posttraumatic stress disorder Lyme disease Anxiety PTSD (post-traumatic stress disorder) ADHD Mild persistent asthma Abdominal pain Asthma (~1984) PTSD (post-traumatic stress disorder) (~2004) Anxiety (~2007) Seizures (~1984) Migraines (~1992) Shoulder pain (~2014) Foot pain (~2009) Chronic back pain (~2005) Ankle pain (~2009) Anemia (~2019) Libido, decreased Obesity Hypothyroidism Fibromyalgia (~2007) Insomnia Depression Surgical History Anesthesia History of shoulder surgery History of ankle surgery History of section Family History Mother Diabetes mellitus Brother Accident Grandmother Diabetes mellitus Social History Smoking Status: Never smoker Smoking Status: Never smoker alcohol intake frequency: 0-2 drinks per day Substance Use Type: does not use Exam Initial Vital Signs Initial Vital Signs: Vital Signs Pulse Rate 80 03/08/24 07:21 Pulse Oximetry 97 03/08/24 07:21 HENMT Head: normal to inspection and normocephalic Chest Chest: No crepitus and No tenderness Resp Effort & Inspection: normal respiratory effort Auscultation: clear to auscultation bilaterally Cardio Rate: regular rate Rhythm: regular rhythm GI Inspection: normal to inspection and non-distended Skin General: no rashes or lesions noted Neuro General: patient alert, patient awake and moves all extremities Extrem General: No edema Scores HEART Score Heart Score history: Slightly Suspicious Heart Score EKG: Normal Heart Score Age: 45-64 years old Heart Score risk factors: 1-2 risk factors Heart Score troponin: < or = to normal limit Heart Score Total: 2 PERC Score Age greater than or equal to 50 years: No Heart rate greater than or equal to 100 bpm: No Room Air O2 Sat less than 95%: No Unilateral leg swelling: No Recent trauma or surgery: No Hemoptysis: No Prior PE or DVT: No Hormone Use: No Total PERC Score: 0 Wells' Criteria for PE Clinical signs and symptoms of DVT: No PE is #1 Dx or equally likely: No Heart rate > 100: No Immobilization at least 3 days or surg in previous 4 weeks: No History of PE or DVT: No Hemoptysis: No Malignancy w/Treatment within 6 months or palliative: No Wells' PE Score total: 0 Course Orders Ordered: ED Orders 03/08/24 07:17 XR chest 1V Stat 03/08/24 07:28 Complete Blood Count AUTO DIFF Stat Comprehensive Metabolic Panel Stat Lipase Stat Troponin & CK Cardiac Panel Stat 03/08/24 07:34 EKG-12 Lead Stat 03/08/24 08:41 Urinalysis and Microscopic Stat Urine Culture Stat 03/08/24 09:35 Troponin & CK Cardiac Panel Stat Discontinued Medications Ondansetron HCl (Ondansetron 4 Mg Odt) 4 mg SL NOW ONE Stop: 03/08/24 09:00 Last Admin: 03/08/24 09:08 Dose: 4 mg Documented By: RB Vital Signs Vital signs: Vital Signs - 8 hr 03/08/24 07:21 03/08/24 07:22 03/08/24 07:28 Pulse Rate 80 82 Respiratory Rate 18 Blood Pressure 192/84 H 161/86 H Pulse Oximetry 97 97 Oxygen Delivery Method Room Air 03/08/24 07:28 03/08/24 07:30 03/08/24 07:31 Pulse Rate 76 73 71 Respiratory Rate 26 H 24 24 Blood Pressure Pulse Oximetry 97 98 96 Oxygen Delivery Method 03/08/24 07:31 03/08/24 07:45 03/08/24 07:45 Pulse Rate 66 Respiratory Rate 15 Blood Pressure 145/78 H 132/69 Pulse Oximetry 96 Oxygen Delivery Method 03/08/24 07:59 03/08/24 08:00 03/08/24 08:00 Pulse Rate 69 66 Respiratory Rate 13 18 Blood Pressure 123/68 Pulse Oximetry 97 97 Oxygen Delivery Method 03/08/24 08:36 03/08/24 08:37 03/08/24 08:37 Pulse Rate 68 66 Respiratory Rate 19 Blood Pressure 130/74 Pulse Oximetry 97 97 Oxygen Delivery Method 03/08/24 08:45 03/08/24 08:45 03/08/24 09:00 Pulse Rate 67 Respiratory Rate 18 Blood Pressure 121/71 119/68 Pulse Oximetry 96 Oxygen Delivery Method 03/08/24 09:00 03/08/24 09:15 03/08/24 09:15 Pulse Rate 61 69 Respiratory Rate 14 26 H Blood Pressure 124/67 Pulse Oximetry 97 97 Oxygen Delivery Method 03/08/24 09:30 03/08/24 09:30 03/08/24 09:45 Pulse Rate 66 Respiratory Rate 23 Blood Pressure 121/71 121/67 Pulse Oximetry 98 Oxygen Delivery Method 03/08/24 09:45 Pulse Rate 67 Respiratory Rate 22 Blood Pressure Pulse Oximetry 97 Oxygen Delivery Method Medical Decision Making Lab Data Lab results reviewed: Yes I reviewed the patient's lab results. 03/08/24 07:28 03/08/24 07:28 Labs: Lab Results 03/08/24 03/08/24 03/08/24 Range/Units 07:28 08:41 09:35 WBC 10.6 (4.5-11.0) X10^3/uL RBC 4.92 (4.0-5.2) X10^6/uL Hgb 14.4 (12.0-16.0) g/dL Hct 42.3 (36-46) % MCV 86.1 (80-100) fL MCH 29.4 (26-34) PG MCHC 34.1 (30-36) % RDW 13.7 (11.6-14.8) % Plt Count 319 (150-400) X10^3/uL Neut % (Auto) 63.5 (50-75) % Lymph % (Auto) 23.3 L (25-40) % [place] % (Auto) 8.8 (3-14) % Eos % (Auto) 3.2 (2-4) % Baso % (Auto) 1.2 (0-2) % Neut # (Auto) 6700 (0146-3773) /uL Lymph # (Auto) 2500 (3126-5797) /uL Hardin # (Auto) 900 (0-900) /uL Eos # (Auto) 300 (0-450) /uL Baso # (Auto) 100 (0-100) /uL Sodium 139 (137-145) mmol/L Potassium 4.2 (3.4-5.1) mmol/L Chloride 105 (98-107) mmol/L Carbon Dioxide 28 (22-32) mmol/L BUN 29 H (7-17) mg/dL Creatinine 0.64 (0.52-1.04) mg/dL Estimated GFR > 60 (>60) mL/min BUN/Creatinine Ratio 45.3 H (6-22) Glucose 87 (70-100) mg/dL Calcium 9.9 (8.4-10.2) mg/dL Total Bilirubin 0.7 (0.2-1.3) mg/dL AST 33 (14-36) IU/L ALT 32 (<35) IU/L Alkaline Phosphatase 97 (38-126) U/L Total Creatine Kinase 83 83 (30-135) U/L Troponin I < 0.012 < 0.012 (0.01-0.034) ng/mL Total Protein 8.6 H (6.3-8.2) g/dL Albumin 4.8 (3.5-5.0) g/dL Globulin 3.8 (1.7-4.1) g/dL Albumin/Globulin Ratio 1.3 (1.0-2.8) Lipase 55 (23-300) U/L Urine Color Yellow Urine Appearance Clear Urine pH 6.0 (4.5-8.0) Ur Specific [place] 1.010 (1.000-1.035) Urine Protein Negative (Negative) Urine Glucose (UA) Negative (Negative) g/dL Urine Ketones Negative (NEGATIVE) Urine Occult Blood Negative (Negative) Urine Nitrate Negative (Negative) Urine Bilirubin Negative (NEGATIVE) Urine Urobilinogen 0.2 (0.2) E.U./dL Ur Leukocyte Esterase Trace H (NEGATIVE) Urine RBC None seen (0-5/HPF) Urine WBC 1-5/hpf (0-5/HPF) Ur Squamous Epith Cells 5-10 /hpf H (0-5/HPF) Urine Bacteria None seen (None) Ur Culture Indicated? Specimen cultured Vol Urine Centrifuged 10ml (spun) Urine Dip Bedside Urine Glucose Negative Bedside Urine Bilirubin - Negative Bedside Urine Ketone - Negative Urine Specific [place] 1.015 Bedside Urine Occult Blood - Negative Bedside Urine pH 6.0 Bedside Urine Protein - Negative Bedside Urine Urobilinogen - Negative Bedside Urine Nitrite - Negative Bedside Urine Leukocytes ++ 125 Esterase Point of care testing: Urine Dip Bedside Urine Glucose Negative Bedside Urine Bilirubin - Negative Bedside Urine Ketone - Negative Urine Specific [place] 1.015 Bedside Urine Occult Blood - Negative Bedside Urine pH 6.0 Bedside Urine Protein - Negative Bedside Urine Urobilinogen - Negative Bedside Urine Nitrite - Negative Bedside Urine Leukocytes ++ 125 Esterase Imaging Data Chest x-ray: Radiologist's Impression: PROCEDURE: XR CHEST 1V INDICATIONS: Chest pain TECHNIQUE: One view of the chest was acquired. COMPARISON: None. FINDINGS: Surgical changes and devices: None. Lungs and pleura: Lungs are clear. No pleural effusions or pneumothorax. Mediastinum: Mediastinal contours appear normal. Heart size is normal. Bones and chest wall: No suspicious bony lesions. Overlying soft tissues appear unremarkable. IMPRESSION: No acute cardiopulmonary abnormality is seen. ECG Data Attestation: I personally reviewed and interpreted this ECG as follows: Interpretation: Sinus rhythm Ventricular rate is 73 Normal axis Normal QRS Normal QTC No ST T wave changes MDM Narrative Medical decision making narrative: Patient is low risk per the revised [place] score for pulmonary embolism, low risk heart score, chest x-ray is unremarkable, 2- troponins with the 2nd being 6 hours of the onset of the discomfort. Had a long discussion with the patient regarding her symptoms. We discussed that she was low risk for ACS. We discussed the uncertain etiology in the patient expressed understanding of this. Will discharge patient home with return precautions. She expressed understanding and agreement. Discharge Plan Departure Patient Disposition: Home Clinical Impression: Atypical chest pain Instructions: DI for Atypical Chest Pain Activity Restrictions/Additional Instructions: Continue to take all of your medications as directed. Recommend that you contact your primary care doctor for a follow-up. Return to the emergency department for new or worsening symptoms. Prescriptions: No Action albuterol sulfate 90 mcg/actuation HFA aerosol inhaler 2 puff inhalation Q4-6H PRN (Reason: shortness of breath or wheezing) Qty: 8.5 1RF fluticasone propionate [Flovent HFA] 110 mcg/actuation HFA aerosol inhaler 2 puff inhalation BID Qty: 12 1RF Rx Instructions: rinse mouth and throat after use levothyroxine 100 mcg tablet 100 mcg PO DAILY Qty: 90 3RF semaglutide (weight loss) 0.25 mg/0.5 mL pen injector 0.25 mg SUBCUT QWEEK Qty: 2 3RF Rx Instructions: administer 0.25 mg once weekly x 4 weeks; increase dose to 0.5 mg once weekly after 4 weeks Wegovy 0.5 mg/0.5 mL pen injector 0.5 mg SUBCUT QWEEK Qty: 2 0RF Rx Instructions: administer weeks 5 through 8 of therapy Wegovy 1 mg/0.5 mL pen injector 1 mg SUBCUT Q7D Qty: 2 0RF Rx Instructions: Start this after completing 0.5mg dose pens Wegovy 1.7 mg/0.75 mL pen injector 1.7 mg SUBCUT QWEEK Qty: 3 0RF Rx Instructions: Start this after completing 1mg dose pens acetaminophen 500 mg tablet 500 mg PO Q4H PRN (Reason: pain) Referrals: Benson Jacob ARNP [Primary Care Provider] - Stand Alone Forms: Patient Portal/API
[2024-03-08 07:39] LABS: Add Manual Diff / Slide Review NO; Basophils Absolute Auto 100 /uL (0-100); Basophils Percent Auto 1.2 % (0-2); Eosinophils Absolute Auto 300 /uL (0-450); Eosinophils Percent Auto 3.2 % (2-4); Hematocrit 42.3 % (36-46); Hemoglobin 14.4 g/dL (12.0-16.0); Lymphocytes Absolute Auto 2500 /uL (1100-4500); Lymphocytes Percent Auto 23.3 % (25-40); Mean Corpuscular HGB Conc 34.1 % (30-36); Mean Corpuscular Hemoglobin 29.4 PG (26-34); Mean Corpuscular Volume 86.1 fL (80-100); Monocytes Absolute Auto 900 /uL (0-900); Monocytes Percent Auto 8.8 % (3-14); Neutrophils Absolute Auto 6700 /uL (1500-7000); Neutrophils Percent Auto 63.5 % (50-75); Platelet Count 319 X10^3/uL (150-400); Red Blood Cell Count 4.92 X10^6/uL (4.0-5.2); Red Cell Distribution Width 13.7 % (11.6-14.8); White Blood Cell Count 10.6 X10^3/uL (4.5-11.0)
[2024-03-08 07:49] LABS: Alanine Aminotransferase 32 IU/L (<35); Albumin 4.8 g/dL (3.5-5.0); Albumin Globulin Ratio 1.3 (1.0-2.8); Alkaline Phosphatase 97 U/L (38-126); Aspartate Aminotransferase 33 IU/L (14-36); BUN Creatinine Ratio 45.3 (6-22); Bilirubin Total 0.7 mg/dL (0.2-1.3); Blood Urea Nitrogen 29 mg/dL (7-17); Calcium 9.9 mg/dL (8.4-10.2); Carbon Dioxide 28 mmol/L (22-32); Chloride 105 mmol/L (98-107); Creatine Kinase 83 U/L (30-135); Estimated Glomerular Filt Rate > 60 mL/min (>60); Globulin 3.8 g/dL (1.7-4.1); Glucose 87 mg/dL (70-100); HEMOLYSIS 34 (0-50); Lipase 55 U/L (23-300); Potassium 4.2 mmol/L (3.4-5.1); Sodium 139 mmol/L (137-145); Total Protein 8.6 g/dL (6.3-8.2)
[2024-03-08 08:00] LABS: Troponin I < 0.012 ng/mL (0.01-0.034)
[2024-03-08 08:52] LABS: Appearance Urine UA CLEAR; Bilirubin Urine UA NEGATIVE (NEGATIVE); Color Urine UA YELLOW; Glucose Urine UA NEGATIVE (Negative); Ketones Urine UA NEGATIVE (NEGATIVE); Leukocyte Esterase Urine UA TRACE (NEGATIVE); Nitrite Urine UA NEGATIVE (Negative); Occult Blood Urine UA NEGATIVE (Negative); Protein Urine UA NEGATIVE (Negative); Urobilinogen Urine UA 0.2 E.U./dL (0.2)
[2024-03-08 08:55] LABS: Bacteria Urine None Seen; Culture Indicated Urine Specimen Cultured; RBC Urine None Seen (0-5/HPF); Squamous Epithelial Cell Urine 5-10 /HPF (0-5/HPF); Urine Volume 10mL (spun); WBC Urine 1-5/HPF (0-5/HPF)
[2024-03-08] MEDS: ONDANSETRON 4 MG ODT SL (09:08)
[2024-03-08 09:54] LABS: Creatine Kinase 83 U/L (30-135)
[2024-03-08 10:07] LABS: Troponin I < 0.012 ng/mL (0.01-0.034)
== END 2024-03-08 10:30 | disposition home or self-care (01) ==
PROVIDERS: Emergency Provider Emergency Medicine; Family Provider Registered Nurse Diabetes Educator; PCP Registered Nurse Diabetes Educator
DX: R07.89 Other chest pain (principal)
CPT/HCPCS: 36415; 71045; 80053; 81001; 81003; 82550; 83690; 84484; 85025; 87086; 93005; 99284

== ENCOUNTER → 2024-05-12 13:05 | Outpatient (CLI) | payer OTHER, SELFPAY ==
--- NOTE | 2024-05-12 13:06 | DI.MG.S_ITS ---
BILATERAL DIGITAL SCREENING MAMMOGRAM 3D/2D WITH CAD: 05/12/2024 CLINICAL: Routine screening. Baseline exam. No prior exams were available for comparison. There are scattered areas of fibroglandular density in both breasts (category b / 25%-50% glandular tissue). Current study was also evaluated with a Computer Aided Detection (CAD) system. There is a focal asymmetry in the right breast at 4 o'clock middle depth. No other significant masses, calcifications, or other findings are seen in either breast. IMPRESSION: INCOMPLETE: NEEDS ADDITIONAL IMAGING EVALUATION The focal asymmetry in the right breast is indeterminate. Additional views with possible ultrasound are recommended. Based on the Tyrer Cuzick model (a risk assessment model) the patient's lifetime risk is 5.6% and her 10 year risk is 1.2%. According to the ACR, ACS, and NCCN guidelines, an annual breast MRI exam along with mammogram is recommended if the patient's lifetime risk is 20% or greater. This exam was interpreted at Station ID: [id number]. NOTE: For mammograms, a report in lay terms will be sent to the patient. Approximately 15% of breast malignancies will not be visualized mammographically. In the management of a palpable breast mass, a negative mammogram must not discourage biopsy of a clinically suspicious lesion. Electronically Signed By: Kori chavez/martha:05/12/2024 16:07:27 letter sent: Additional Imaging Needed ACR BI-RADS Category 0: Incomplete 3340F
== END ==
PROVIDERS: Family Provider Registered Nurse Diabetes Educator; PCP Registered Nurse Diabetes Educator; Referring Provider Registered Nurse Diabetes Educator; Visit Provider Registered Nurse Diabetes Educator
DX: Z12.31 Encounter for screening mammogram for malignant neoplasm of breast (principal); R92.323 Mammographic fibroglandular density, bilateral breasts
CPT/HCPCS: 77063; 77067

== ENCOUNTER → 2024-06-01 13:22 | Outpatient (CLI) | payer OTHER, SELFPAY ==
--- NOTE | 2024-06-01 13:23 | DI.MG.S_ITS ---
UNILATERAL RIGHT DIGITAL DIAGNOSTIC MAMMOGRAM 3D/2D WITH ADDITIONAL VIEWS: 06/01/2024 CLINICAL: Additional evaluation requested from prior study. Comparison is made to exam dated: 05/12/2024 mammogram - [facility]. There are scattered areas of fibroglandular density in the right breast (category b / 25%-50% glandular tissue). There is an oval focal asymmetry in the right breast at 4 o'clock middle depth. This is seen in additional views. No other significant masses or calcifications are seen in the breast. IMPRESSION: INCOMPLETE: NEEDS ADDITIONAL IMAGING EVALUATION The oval focal asymmetry in the right breast resembles a cyst, fibroglandular tissue, or a lymph node and is indeterminate. An ultrasound is recommended for further evaluation and is scheduled to immediately follow this examination. Based on the Tyrer Cuzick model (a risk assessment model) the patient's lifetime risk is 5.6% and her 10 year risk is 1.2%. According to the ACR, ACS, and NCCN guidelines, an annual breast MRI exam along with mammogram is recommended if the patient's lifetime risk is 20% or greater. This exam was interpreted at Station ID: [id number]. NOTE: For mammograms, a report in lay terms will be sent to the patient. Approximately 15% of breast malignancies will not be visualized mammographically. In the management of a palpable breast mass, a negative mammogram must not discourage biopsy of a clinically suspicious lesion. Electronically Signed By: Brice Ma M.D. aty/:06/01/2024 14:46:13 ACR BI-RADS Category 0: Incomplete 3340F
--- NOTE | 2024-06-01 13:23 | DI.US.S_ITS ---
ULTRASOUND OF RIGHT BREAST: 06/01/2024 CLINICAL: Follow up from addtional views. Comparison is made to exams dated: 06/01/2024 mammogram and 05/12/2024 mammogram - [facility]. Color flow and real-time ultrasound of the right breast were performed. There is a 0.6 cm x 0.2 cm x 0.4 cm wider than tall oval mass in the right breast at 5 o'clock middle depth 4 cm from the nipple. This oval mass is hypoechoic with internal echoes. This correlates with mammography findings. Color flow imaging demonstrates that there is no vascularity present. IMPRESSION: PROBABLY BENIGN The 0.6 cm x 0.2 cm x 0.4 cm wider than tall oval mass in the right breast has a differential diagnosis of a complex cyst, a complicated cyst, or a lymph node and is probably benign. A follow-up right mammogram and an ultrasound in 6 months is recommended to demonstrate stability. Findings and recommendations were conveyed to the patient during today's evaluation. This exam was interpreted at Station ID: [id number]. Electronically Signed By: Brice hair/:06/01/2024 14:55:48 letter sent: Followup Recommended Ultrasound BI-RADS: 3 Probably benign
== END ==
LOC: MAMMO 13:22
PROVIDERS: Family Provider Registered Nurse Diabetes Educator; PCP Registered Nurse Diabetes Educator; Referring Provider Registered Nurse Diabetes Educator; Visit Provider Registered Nurse Diabetes Educator
DX: R92.8 Other abnormal and inconclusive findings on diagnostic imaging of breast (principal); N63.14 Unspecified lump in the right breast, lower inner quadrant; R92.321 Mammographic fibroglandular density, right breast
CPT/HCPCS: 76642; 77065; G0279

== ENCOUNTER → 2025-04-25 11:47 | Outpatient (CLI) | payer OTHER, SELFPAY ==
--- NOTE | 2025-04-25 11:48 | DI.MG.S_ITS ---
MM diagnostic mammo BI, US breast RT limited: 04/25/2025 BI-RADS: 3 CLINICAL: 50-year old female for bilateral diagnostic mammogram and right diagnostic breast ultrasound. Tyrer-Cuzick lifetime risk of 5.1%. No personal or first- degree family history of breast cancer. PRIOR EXAMS 06/01/2024, 05/12/2024. MAMMOGRAPHY TECHNIQUE: 2D and 3D (tomosynthesis) digital mammographic views obtained, with additional images as needed for full coverage. Current study was also evaluated with a Computer Aided Detection (CAD) system. ULTRASOUND TECHNIQUE Real-time cortez scale and color doppler imaging of the area of clinical interest was performed with image documentation. TARGETED Right Breast Ultrasound: Real-time ultrasound exam was performed focused to area of clinical and/or imaging concern. DENSITY B. There are scattered areas of fibroglandular density. MAMMOGRAPHY FINDINGS Right: Lower Inner at 4:00, Middle depth: There is a focal asymmetry present. Left: No suspicious mass, asymmetry, microcalcification, or other abnormality seen. ULTRASOUND FINDINGS Right: Lower Inner at 5:00, 4 cm from nipple, measuring 0.6 x 0.7 x 0.2 cm: There is a complicated cyst with low level echoes showing posterior acoustic enhancement that has increased in size. Doppler shows no vascularity. IMPRESSION: Right (Complicated Cyst): Lower Inner at 5:00, 4 cm from nipple, measuring 0.6 x 0.7 x 0.2 cm * Probably Benign. Left * No evidence of malignancy. RECOMMENDATIONS Right: Lower Inner at 5:00, 4 cm from nipple * Six month followup with diagnostic ultrasound. COMMENTS: Findings and recommendations were conveyed to the patient during today's evaluation. OVERALL ASSESSMENT CATEGORY BI-RADS-3: Probably Benign. ELECTRONICALLY SIGNED: Nicol Domingo M.D. on 04/26/2025 at 12:38:39 AM PT Interpreting Station ID: [id number]
== END ==
PROVIDERS: Family Provider Registered Nurse Diabetes Educator; PCP Registered Nurse Diabetes Educator; Referring Provider Registered Nurse Diabetes Educator; Visit Provider Registered Nurse Diabetes Educator
DX: R92.8 Other abnormal and inconclusive findings on diagnostic imaging of breast (principal); N60.01 Solitary cyst of right breast
CPT/HCPCS: 76642; 77066; G0279